=== PATIENT | female | born 1995 | race American Indian/Alaskan Native ===

== ENCOUNTER 2019-02-18 01:58 | Inpatient (IN) | payer MEDICAID, OTHER ==
[2019-02-18 02:03] VITALS: BMI 30.2
[2019-02-18] MEDS: Sodium Chloride 0.9% 1,000 ML IV SCH ×4 (02:20→21:13)
--- NOTE | 2019-02-18 02:23 | ED PDOC ---
Arrival/HPI - General Chief Complaint: Dizziness/Lightheaded Time Seen by Provider: 02/18/19 02:00 Historian: Patient - History of Present Illness Narrative History of Present Illness (Text): 02/18/19 02:14 23 year old female, whose past medical history includes diabetes, who presents to the ED complaining of dizziness tonight. Patient reports she has not taken her insulin "in months" due to insurance issues and developed dizziness this evening. Patient notes she took her blood sugar, which was elevated. Patient reports associated headache, lightheadedness, and vomiting. Patient denies any chest pain, shortness of breath, fever, chills, cough, diarrhea, abdominal pain or any other complaints. Time/Duration: 1-3 hours Symptom Onset: Gradual Symptom Course: Unchanged Activities at Onset: Light Context: Home Past Medical History - Provider Review Nursing Documentation Reviewed: Yes - Infectious Disease Hx of Infectious Diseases: None - Cardiac Hx Hypertension: Yes - Pulmonary Hx Respiratory Disorders: Yes Hx Asthma: Yes - Endocrine/Metabolic Hx Diabetes Mellitus Type 2: Yes - Psychiatric Hx Substance Use: No - Anesthesia Hx Anesthesia: No Family/Social History - Physician Review Nursing Documentation Reviewed: Yes Family/Social History: Unknown Family HX Smoking Status: Never Smoked Hx Alcohol Use: No Frequency of alcohol use: Socially Hx Substance Use: No Allergies/Home Meds Allergies/Adverse Reactions: Allergies peanut Allergy (Verified 02/18/19 02:04) ANAPHYLAXIS iv contrast Allergy (Uncoded 02/18/19 02:04) ANAPHYLAXIS seafood Allergy (Uncoded 02/18/19 02:04) ANAPHYLAXIS Home Medications: Home Meds Medication Instructions Recorded Confirmed No Known Home Med 02/18/19 02/18/19 Review of Systems - Physician Review All systems were reviewed & negative as marked: Yes - Review of Systems Constitutional: Normal. absent: Fevers Eyes: Normal ENT: Normal Respiratory: Normal. absent: SOB, Cough Cardiovascular: Normal. absent: Chest Pain Gastrointestinal: Vomiting. absent: Abdominal Pain Genitourinary Female: Normal. absent: Dysuria, Frequency, Hematuria, Urine Output Changes Musculoskeletal: Normal. absent: Back Pain, Neck Pain Skin: Normal. absent: Rash Neurological: Headache, Dizziness Endocrine: Other (+high blood sugar) Hemo/Lymphatic: Normal Psychiatric: Normal Physical Exam Vital Signs Reviewed: Yes Vital Signs Temp Pulse Resp BP Pulse Ox 02/18/19 02:12 97.7 F 103 H 18 113/78 98 Temperature: Afebrile Blood Pressure: Normal Pulse: Regular Respiratory Rate: Normal Appearance: Positive for: Well-Appearing, Non-Toxic, Comfortable Pain Distress: None Mental Status: Positive for: Alert and Oriented X 3 Finger Stick Blood Glucose: 489 - Systems Exam Head: Present: Atraumatic, Normocephalic Pupils: Present: PERRL Extroacular Muscles: Present: EOMI Conjunctiva: Present: Normal Mouth: Present: Moist Mucous Membranes Neck: Present: Normal Range of Motion Respiratory/Chest: Present: Clear to Auscultation, Good Air Exchange. No: Respiratory Distress, Accessory Muscle Use Cardiovascular: Present: Regular Rate and Rhythm, Normal S1, S2. No: Murmurs Abdomen: No: Tenderness, Distention, Peritoneal Signs Back: Present: Normal Inspection Upper Extremity: Present: Normal Inspection. No: Cyanosis, Edema Lower Extremity: Present: Normal Inspection. No: Edema Neurological: Present: GCS=15, CN II-XII Intact, Speech Normal Skin: Present: Warm, Dry, Normal Color. No: Rashes Psychiatric: Present: Alert, Oriented x 3, Normal Insight, Normal Concentration Medical Decision Making ED Course and Treatment: 02/18/19 02:27 Impression: 24 year old female who presents to the ED for dizziness. Plan: -- Labs, lipase, troponin -- IV Fluids -- Zofran -- Urinalysis, urine drug screen -- Reassess and disposition Progress Notes: 02/18/19 04:03 Case discussed with medical detailist electrical power station technician, who is aware and agrees with plan. 02/18/19 04:[address] Alberts, who is aware and agrees with plan. Accepts pt in to hospitalist service. Pt will go to [facility] observation for hyperglycemia. - Lab Interpretations I have reviewed the lab results: Yes - Medication Orders Current Medication Orders: Sodium Chloride (Sodium Chloride 0.9%) 1,000 mls @ 1,000 mls/hr IV .Q1H EDIS Ondansetron HCl (Zofran Inj) 4 mg IVP STAT STA Stop: 02/18/19 02:11 - Scribe Statement The provider has reviewed the documentation as recorded by the Milton Marquez training with Maryana Reinoso. All medical record entries made by the Scribe were at my direction and personally dictated by me. I have reviewed the chart and agree that the record accurately reflects my personal performance of the history, physical exam, [facility] hospital decision making, and the department course for this patient. I have also personally directed, reviewed, and agree with the discharge instructions and disposition. Disposition/Present on Arrival - Present on Arrival Any Indicators Present on Arrival: No History of DVT/PE: No History of Uncontrolled Diabetes: Yes Urinary Catheter: No History of Decub. Ulcer: No History Surgical Site Infection Following: None - Disposition Have Diagnosis and Disposition been Completed?: Yes Diagnosis: Hyperglycemia Disposition: HOSPITALIZED Disposition Time: 04:07 Condition: GOOD
[2019-02-18 03:24] LABS: ALB/GLOB RATIO 1.1 (1.1-1.8); ALBUMIN 4.4 g/dL (3.0-4.8); ALT/SGPT < 6 U/L (7-56); AST/SGOT 19 U/L (14-36); BLOOD UREA NITROGEN 8 mg/dL (7-21); CALCIUM 9.6 mg/dL (8.4-10.5); GFR NON-AFRICAN AMERICAN > 60
[2019-02-18 03:44] LABS: BARBITURATES, UR NEGATIVE (NEGATIVE); BENZODIAZEPINES, UR NEGATIVE (NEGATIVE); OPIATES, UR NEGATIVE (NEGATIVE); PHENCYCLIDINE, UR NEGATIVE (NEGATIVE)
[2019-02-18] MEDS ORDERED: Insulin Regular 1 UNITS/0.01 ML ML IVP STA (03:47)
[2019-02-18 04:09] LABS: BASO # 0.02 K/mm3 (0.0-2.0); BASO % 0.3 % (0.0-3.0); EOS # 0.1 (0.0-0.7); EOS % 1.8 % (1.5-5.0); HEMOGLOBIN 13.2 g/dL (12.0-16.0); LYMPH # 2.5 (1.2-3.4); MEAN CELL VOLUME 81.2 fl (80.0-105.0); MEAN CORPUSCULAR HEMOGLOBIN 26.7 pg (25.0-35.0); MEAN CORPUSCULAR HGB CONC 32.9 g/dl (31.0-37.0); MONO # 0.5 (0.1-0.6); MONO % 6.4 % (1.0-6.0); RBC 4.94 10^6/uL (3.5-6.1); RED CELL DISTRIBUTION WIDTH 12.5 % (11.5-14.5); WHITE BLOOD COUNT 7.7 10^3/uL (4.5-11.0)
[2019-02-18 04:13] LABS: URINE BILIRUBIN NEGATIVE (NEGATIVE); URINE BLOOD TRACE-INTACT (NEGATIVE); URINE GLUCOSE (UA) >=1000 mg/dL (NEGATIVE); URINE LEUKOCYTE ESTERASE TRACE Leu/uL (NEGATIVE); URINE PROTEIN NEGATIVE mg/dL (<30 mg/dL); URINE UROBILINOGEN 0.2 E.U./dL (<1 E.U./dL)
[2019-02-18 04:14] LABS: URINE APPEARANCE SL CLOUDY (CLEAR); URINE COLOR STRAW (YELLOW)
[2019-02-18] MEDS ORDERED: Dextrose 50% SYRINGE Inj (50 ml) IV PRN (04:17)
[2019-02-18] MEDS ORDERED: Potassium Chloride 20 mEq ER Tab PO STA (04:19)
[2019-02-18 04:25] LABS: URINE BACTERIA FEW /hpf; URINE RBC 0 - 2 /hpf (0-2)
[2019-02-18] MEDS ORDERED: Albuterol 0.083% Inhal Sol (2.5 mg/3 mL) UD IH PRN (05:06)
[2019-02-18] MEDS ORDERED: Sodium Chloride 0.9% 1,000 ML IV SCH ×2 (05:15→08:00)
--- NOTE | 2019-02-18 05:26 | CP.PCM.HP ---
<Kevin Frankelophe - Last Filed: 02/18/19 05:47> History of Present Illness - History of Present Illness History of Present Illness: Dr Frankel [facility] Hospitalist Service 24F PMHx of DM2 and Intermittent Asthma presents to the ED with a 2 week history of headaches, abdominal discomfort, nausea, dizziness, blurry vision, bilateral generalized leg pains and not taking insulin for 2 months. Pt attributes this to running out of her home insulin, as this has happened before, however the symptoms are worse today than ever before. the Pt is frequently non compliant with her medication at home and frequently runs out of her supply. Pt does not follow up with a PMD, pt [place] [facility] [place] [facility] [place] for her medical care. Pt says she has not seen a doctor in the office since she was a young child. ROS Pos: headaches, abdominal discomfort, nauseau, dizziness, blurry vision, bilateral generalized leg pains, med non compliance Neg: dysuria/urinary frequency, mental status changes, chest pain, SOB, fevers, chills, recent illness, sick contact, blood in urine/stool, syncope PMHx: DM2, Intermittent Asthma PSHx: denies FH: MOM - DM HTN Soc: smokes marijuana occasionally, denies ETOH, tobacco Allergies: peanuts, IV contrast, seafood Home Rx: Humalin 15u HS Novolog 7u SCHS Albuterol inh PRN Present on Admission - Present on Admission Any Indicators Present on Admission: Yes History of Uncontrolled Diabetes: Yes Review of Systems - Constitutional Constitutional: Headache. absent: Chills, Fever, Night Sweats, Weakness - EENT Eyes: Blurred Vision, Change in Vision. absent: Diplopia, Floaters Ears: Dizziness Nose/Mouth/Throat: absent: Dysphagia - Cardiovascular Cardiovascular: absent: Chest Pain, Dyspnea, Pain Radiating to Arm/Neck/Jaw, Orthopnea, Syncope - Respiratory Respiratory: absent: Cough, Dyspnea, Wheezing, Stridor - Gastrointestinal Gastrointestinal: Nausea. absent: Constipation, Cramping, Diarrhea, Dysphagia, Hematemesis, Hematochezia, Vomiting - Genitourinary Genitourinary: absent: Change in Urinary Stream, Dysuria - Musculoskeletal Musculoskeletal: Myalgias (bilateral legs) - Neurological Neurological: Dizziness. absent: Syncope, Weakness - Psychiatric Psychiatric: absent: Anxiety, Depression - Endocrine Endocrine: absent: Flushing, Palpitations Past Patient History - Infectious Disease Hx of Infectious Diseases: None - Past Social History Smoking Status: Never Smoked - CARDIAC Hx Hypertension: Yes - PULMONARY Hx Respiratory Disorders: Yes Hx Asthma: Yes - ENDOCRINE/METABOLIC Hx Diabetes Mellitus Type 2: Yes - PSYCHIATRIC Hx Substance Use: No - ANESTHESIA Hx Anesthesia: No Meds Allergies/Adverse Reactions: Allergies Allergy/AdvReac Type Severity Reaction Status Date / Time peanut Allergy ANAPHYLAXIS Verified 02/18/19 02:04 iv contrast Allergy ANAPHYLAXIS Uncoded 02/18/19 02:04 seafood Allergy ANAPHYLAXIS Uncoded 02/18/19 02:04 Physical Exam - Constitutional Appears: Non-toxic, No Acute Distress - Head Exam Head Exam: ATRAUMATIC, NORMOCEPHALIC - Eye Exam Eye Exam: EOMI, Normal appearance. absent: Scleral icterus Pupil Exam: NORMAL ACCOMODATION, PERRL - ENT Exam ENT Exam: Mucous Membranes Moist, Normal Exam - Neck Exam Neck exam: Positive for: Full Rom. Negative for: Lymphadenopathy - Respiratory Exam Respiratory Exam: Clear to Auscultation Bilateral. absent: Rales, Wheezes, Stridor - Cardiovascular Exam Cardiovascular Exam: RRR, +S1, +S2 - GI/Abdominal Exam GI & Abdominal Exam: Tenderness (R and L lower quadrants upon deep palp, reproduces nausea). absent: Distended, Guarding, Rigid - Extremities Exam Extremities exam: Positive for: normal capillary refill. Negative for: pedal edema - Back Exam Back exam: absent: CVA tenderness (L), CVA tenderness (R), rash noted - Neurological Exam Neurological exam: Alert, CN II-XII Intact, Normal Gait, Oriented x3 - Psychiatric Exam Psychiatric exam: Normal Affect, Normal Mood - Skin Skin Exam: Intact, Normal Color, Warm Results - Vital Signs Recent Vital Signs: Last Vital Signs Temp 97.4 F L 02/18/19 04:27 Pulse 106 H 02/18/19 04:27 Resp 20 02/18/19 04:27 BP 115/63 02/18/19 04:27 Pulse Ox 100 02/18/19 04:27 - Labs Result Diagrams: 02/18/19 02:25 02/18/19 02:25 Labs: Laboratory Results - last 24 hr 02/18/19 02/18/19 02/18/19 02:25 02:25 03:00 WBC 7.7 RBC 4.94 Hgb 13.2 Hct 40.1 MCV 81.2 MCH 26.7 MCHC 32.9 RDW 12.5 Plt Count 305 MPV 10.0 Neut % (Auto) 58.5 Lymph % (Auto) 33.0 [place] % (Auto) 6.4 H Eos % (Auto) 1.8 Baso % (Auto) 0.3 Lymph # (Auto) 2.5 [place] # (Auto) 0.5 Eos # (Auto) 0.1 Baso # (Auto) 0.02 Absolute Neuts (auto) 4.50 Sodium 135 Potassium 4.1 Chloride 96 L Carbon Dioxide 27 Anion Gap 16 BUN 8 Creatinine 0.5 L Est GFR ( Amer) > 60 Est GFR (Non-Af Amer) > 60 Random Glucose 585 H* Calcium 9.6 Total Bilirubin 0.3 AST 19 ALT < 6 L Alkaline Phosphatase 89 Total Protein 8.4 H Albumin 4.4 Globulin 4.0 Albumin/Globulin Ratio 1.1 Urine Color Straw Urine Appearance Sl cloudy Urine pH 6.0 Ur Specific [place] 1.010 Urine Protein Negative Urine Glucose (UA) >=1000 Urine Ketones Negative Urine Blood Trace-intact H Urine Nitrate Negative Urine Bilirubin Negative Urine Urobilinogen 0.2 Ur Leukocyte Esterase Trace H Urine RBC 0 - 2 Urine WBC 1 - 3 Ur Epithelial Cells 1 - 3 Urine Bacteria Few Urine Opiates Screen Urine Methadone Screen Ur Barbiturates Screen Ur Phencyclidine Scrn Ur Amphetamines Screen U Benzodiazepines Scrn U Oth Cocaine Metabols U Cannabinoids Screen 02/18/19 03:00 WBC RBC Hgb Hct MCV MCH MCHC RDW Plt Count MPV Neut % (Auto) Lymph % (Auto) [place] % (Auto) Eos % (Auto) Baso % (Auto) Lymph # (Auto) [place] # (Auto) Eos # (Auto) Baso # (Auto) Absolute Neuts (auto) Sodium Potassium Chloride Carbon Dioxide Anion Gap BUN Creatinine Est GFR ( Amer) Est GFR (Non-Af Amer) Random Glucose Calcium Total Bilirubin AST ALT Alkaline Phosphatase Total Protein Albumin Globulin Albumin/Globulin Ratio Urine Color Urine Appearance Urine pH Ur Specific [place] Urine Protein Urine Glucose (UA) Urine Ketones Urine Blood Urine Nitrate Urine Bilirubin Urine Urobilinogen Ur Leukocyte Esterase Urine RBC Urine WBC Ur Epithelial Cells Urine Bacteria Urine Opiates Screen Negative Urine Methadone Screen Negative Ur Barbiturates Screen Negative Ur Phencyclidine Scrn Negative Ur Amphetamines Screen Negative U Benzodiazepines Scrn Negative U Oth Cocaine Metabols Negative U Cannabinoids Screen Negative Assessment & Plan - Assessment and Plan (Free Text) Assessment: 24F pmhx DM2 and intermittent asthma admitted for hyperglycemia, nausea Plan: Hyperglycemia- DM2 uncontrolled - gluc >500 - Anion Gap >15 - UA: no ketones - given 10u Insulin IVP and 1L NS bolus in ED - ISS medium - KCL 40mg PO stat - NS @100 - Endo Dr Guerra consulted: f/u recs - Accuchecks - f/u 6am BMP Nausea/dizziness - Zofran 4 IVP q4 prn - NS @ 100 - Monitor Intermittent Asthma - Ventolin q6 prn for SOB - Monitor O2 sat PPx - Diabetic HHD - SCDs - Pecid 20 IVP daily d/w Dr Alberts <Lisa Alberts - Last Filed: 02/18/19 06:18> Results - Vital Signs Recent Vital Signs: Last Vital Signs Temp 97.4 F L 02/18/19 04:27 Pulse 106 H 02/18/19 04:27 Resp 20 02/18/19 04:27 BP 115/63 02/18/19 04:27 Pulse Ox 100 02/18/19 04:27 - Labs Result Diagrams: 02/18/19 02:25 02/18/19 02:25 Labs: Laboratory Results - last 24 hr 02/18/19 02/18/19 02/18/19 02:25 02:25 03:00 WBC 7.7 RBC 4.94 Hgb 13.2 Hct 40.1 MCV 81.2 MCH 26.7 MCHC 32.9 RDW 12.5 Plt Count 305 MPV 10.0 Neut % (Auto) 58.5 Lymph % (Auto) 33.0 [place] % (Auto) 6.4 H Eos % (Auto) 1.8 Baso % (Auto) 0.3 Lymph # (Auto) 2.5 [place] # (Auto) 0.5 Eos # (Auto) 0.1 Baso # (Auto) 0.02 Absolute Neuts (auto) 4.50 Sodium 135 Potassium 4.1 Chloride 96 L Carbon Dioxide 27 Anion Gap 16 BUN 8 Creatinine 0.5 L Est GFR ( Amer) > 60 Est GFR (Non-Af Amer) > 60 POC Glucose (mg/dL) Random Glucose 585 H* Calcium 9.6 Total Bilirubin 0.3 AST 19 ALT < 6 L Alkaline Phosphatase 89 Total Protein 8.4 H Albumin 4.4 Globulin 4.0 Albumin/Globulin Ratio 1.1 Urine Color Straw Urine Appearance Sl cloudy Urine pH 6.0 Ur Specific [place] 1.010 Urine Protein Negative Urine Glucose (UA) >=1000 Urine Ketones Negative Urine Blood Trace-intact H Urine Nitrate Negative Urine Bilirubin Negative Urine Urobilinogen 0.2 Ur Leukocyte Esterase Trace H Urine RBC 0 - 2 Urine WBC 1 - 3 Ur Epithelial Cells 1 - 3 Urine Bacteria Few Urine Opiates Screen Urine Methadone Screen Ur Barbiturates Screen Ur Phencyclidine Scrn Ur Amphetamines Screen U Benzodiazepines Scrn U Oth Cocaine Metabols U Cannabinoids Screen 02/18/19 02/18/19 03:00 05:42 WBC RBC Hgb Hct MCV MCH MCHC RDW Plt Count MPV Neut % (Auto) Lymph % (Auto) [place] % (Auto) Eos % (Auto) Baso % (Auto) Lymph # (Auto) [place] # (Auto) Eos # (Auto) Baso # (Auto) Absolute Neuts (auto) Sodium Potassium Chloride Carbon Dioxide Anion Gap BUN Creatinine Est GFR ( Amer) Est GFR (Non-Af Amer) POC Glucose (mg/dL) 384 H Random Glucose Calcium Total Bilirubin AST ALT Alkaline Phosphatase Total Protein Albumin Globulin Albumin/Globulin Ratio Urine Color Urine Appearance Urine pH Ur Specific [place] Urine Protein Urine Glucose (UA) Urine Ketones Urine Blood Urine Nitrate Urine Bilirubin Urine Urobilinogen Ur Leukocyte Esterase Urine RBC Urine WBC Ur Epithelial Cells Urine Bacteria Urine Opiates Screen Negative Urine Methadone Screen Negative Ur Barbiturates Screen Negative Ur Phencyclidine Scrn Negative Ur Amphetamines Screen Negative U Benzodiazepines Scrn Negative U Oth Cocaine Metabols Negative U Cannabinoids Screen Negative Attending/Attestation - Attestation I have personally seen and examined this patient.: Yes I have fully participated in the care of the patient.: Yes I have reviewed all pertinent clinical information: Yes Notes (Text): 02/18/19 06:06 Pt seen with the resident by the bedside. Addendum to physical findings: Pt is Obese. Additional diagnosis : Obesity.Pt needs to be seen by commercial or institutional cleaner for proper ad vice regarding diet. Case discussed in detail. Agree with rest of documentation,assessment and plan of treatment.
[2019-02-18] MEDS ORDERED: Sodium Chloride 0.9% 1,000 ML IV STA (06:17)
[2019-02-18 06:53] LABS: BLOOD UREA NITROGEN 5 mg/dL (7-21); CALCIUM 8.7 mg/dL (8.4-10.5); GFR NON-AFRICAN AMERICAN > 60
[2019-02-18] MEDS ORDERED: Influenza Vaccine 60 mcg/0.5 mL SYR (4YR UP) IM ONE (07:32)
[2019-02-18] MEDS: Insulin Reg-MEDIUM-Coverage SC SCH ×4 (08:52→21:48)
[2019-02-18 10:44] LABS: HDL CHOLESTEROL 28 mg/dL (29-60)
[2019-02-18 10:55] LABS: LDL CHOLESTEROL 80 mg/dL (0-129)
--- NOTE | 2019-02-18 12:48 | CON ---
DATE OF CONSULTATION: 02/18/2019 ENDOCRINOLOGY CONSULTATION ROOM: 566. HISTORY OF PRESENT ILLNESS: This is a 24-year-old female with a known history of type 2 insulin-requiring diabetes with recent drug omission of her insulin and oral hypoglycemic therapy for the last 3 months or more, presenting here with generalized body weakness and marked polyuria, nocturia, and polydipsia, with episodic bouts of dizziness and lightheadedness and bifrontal headaches. PAST MEDICAL HISTORY: History of type 2 insulin-requiring diabetes, previously on Humulin NPH given as 15 units at bedtime with NovoLog given as 7 units p.r.n. with meals; history of bronchial asthma and dyslipidemia. FAMILY HISTORY: Positive for diabetes and hypertension. SOCIAL HISTORY: The patient smokes marijuana and has a supportive family otherwise. REVIEW OF SYSTEMS: Admits to bifrontal headaches with dizziness and lightheadedness and generalized body weakness. Also admits to episodic shortness of breath, especially on exertion. Her oral intake has been variable with nausea and dyspepsia and marked polyuria, nocturia, and polydipsia. PHYSICAL EXAMINATION: GENERAL: This is an average built female, in no apparent distress. VITAL SIGNS: Blood pressure of 140/80, pulse of 70 beats per minute regular, temperature 98, respirations 20, height is 5 feet 7 inches. Weight is 193 pounds. HEENT: Head, normocephalic. Eyes anicteric with pink conjunctivae. Fundoscopy not possible at this time. Ears, nose and throat, otherwise normal. NECK: Supple. Thyroid gland is normal in size. No carotid bruits or cervical adenopathy. CARDIOPULMONARY: Some adynamic precordium. S1, S2 are rapid and regular. LUNGS: Clear to auscultation. ABDOMEN: Flat, soft with positive bowel sounds. EXTREMITIES: No peripheral edema. Pulses are +2 bilaterally. LABORATORY DATA: Her initial chemistries showed a BUN of 8, sodium 135, potassium 4.1, chloride 96, CO2 of 27, glucose 585, and creatinine 0.5. A1c is 15.7% confirming before her poor outpatient metabolic control of her diabetic condition related to drug omission. ASSESSMENT: This is a 24-year-old female with uncontrolled and decompensated type 2 insulin-requiring diabetes with marked hyperglycemic accelerations, and no evidence of ketosis and clearly a type 2 diabetic and clearly not a type 1 insulin-dependent diabetic as noted despite her young age. She is also slightly overweight with presumed underlying increased insulin resistance thereof. She also admits to poor adherence to medical office visits and lab testing and drug omission over the last 3 months or more. PLAN OF MANAGEMENT: We will initiate the dual oral hypoglycemic drug combination with glipizide given as 10 mg b.i.d. and metformin at 850 mg b.i.d. as ordered. We will continue the sliding-scale coverage as ordered. We will hold off the initiation of insulin therapy, if she would highly recommend follow up with our local [facility] clinic for ongoing diabetic and medical care. Terra Guerra MD
[2019-02-19] MEDS: Sodium Chloride 0.9% 1,000 ML IV SCH ×2 (03:40→10:41)
[2019-02-19 07:27] LABS: BASO # 0.02 K/mm3 (0.0-2.0); BASO % 0.3 % (0.0-3.0); EOS # 0.1 (0.0-0.7); EOS % 1.7 % (1.5-5.0); HEMOGLOBIN 11.4 g/dL (12.0-16.0); LYMPH # 2.5 (1.2-3.4); LYMPH % 34.7 % (22.0-35.0); MEAN CORPUSCULAR HEMOGLOBIN 25.7 pg (25.0-35.0); MEAN CORPUSCULAR HGB CONC 34.3 g/dl (31.0-37.0); MONO # 0.4 (0.1-0.6); RBC 4.43 10^6/uL (3.5-6.1); RED CELL DISTRIBUTION WIDTH 12.6 % (11.5-14.5); WHITE BLOOD COUNT 7.2 10^3/uL (4.5-11.0)
[2019-02-19] MEDS ORDERED: Insulin Human NPH/Reg 70/30 Vial(3 ml) SC SCH (07:30)
[2019-02-19 08:00] LABS: ALB/GLOB RATIO 0.9 (1.1-1.8); ALBUMIN 2.7 g/dL (3.0-4.8); ALT/SGPT 14 U/L (7-56); AST/SGOT 15 U/L (14-36); BLOOD UREA NITROGEN 8 mg/dL (7-21); GFR NON-AFRICAN AMERICAN > 60
[2019-02-19] MEDS: Insulin Reg-MEDIUM-Coverage SC SCH ×4 (08:36→23:05)
[2019-02-19 08:46] LABS: MEAN CELL VOLUME 82.2 fl (80.0-105.0)
--- NOTE | 2019-02-19 15:06 | CP.PCM.PN ---
<Naresh Cartwright - Last Filed: 02/19/19 15:02> Subjective - Date & Time of Evaluation Date of Evaluation: 02/19/19 Time of Evaluation: 08:00 - Subjective Subjective: Naresh Cartwright PGY1 Medicine Progress Note for Dr. Metz Patient seen at bedside this morning. Patient said she had some vomiting last night x2 episodes. She also had some diarrhea. Otherwise, she denies cp, sob, headache, fevers, chills, abdominal pain. She endorses pins and needle pain in her distal lower extremities. A full 12 point ROS was conducted and unremarkable except as stated above. Objective - Vital Signs/Intake and Output Vital Signs (last 24 hours): Temp Pulse Resp BP Pulse Ox 98 F 89 16 111/74 96 02/19/19 10:08 02/19/19 10:08 02/19/19 10:08 02/19/19 10:08 02/19/19 10:08 Intake and Output: 02/19/19 02/19/19 06:59 18:59 Intake Total 160 Output Total 0 Balance 160 - Medications Medications: Current Medications Albuterol Sulfate (Albuterol 0.083% Inhal Susan (2.5 Mg/3 Ml) Ud) 2.5 mg IH [id number] PRN PRN Reason: Shortness of Breath Dextrose (Dextrose 50% Inj) 0 ml IV STAT PRN; Protocol PRN Reason: Hypoglycemia Protocol Famotidine (Pepcid) 20 mg PO DAILY [facility] Last Admin: 02/19/19 10:40 Dose: 20 mg Gabapentin (Neurontin) 100 mg PO TID [facility]; Protocol Last Admin: 02/19/19 13:05 Dose: Not Given Glipizide (Glucotrol) 5 mg PO 0730,1630 [facility] Sodium Chloride (Sodium Chloride 0.9%) 1,000 mls @ 1,000 mls/hr IV .Q1H [facility] Last Admin: 02/18/19 03:40 Dose: 1,000 mls/hr Dextrose (Dextrose 5% In Water 1000 Ml) 1,000 mls @ 0 mls/hr IV .Q0M PRN; Protocol PRN Reason: Hypoglycemia Protocol Insulin Human Regular (Humulin R Med) 0 units SC ACHS [facility]; Protocol Last Admin: 02/19/19 13:05 Dose: 5 units Metformin HCl (Glucophage) 500 mg PO BID [facility] Ondansetron HCl (Zofran Inj) 4 mg IVP Q4 PRN PRN Reason: Nausea/Vomiting Last Admin: 02/19/19 11:47 Dose: 4 mg - Labs Labs: 02/19/19 07:00 02/19/19 07:00 - Constitutional Appears: Non-toxic, No Acute Distress - Head Exam Head Exam: ATRAUMATIC, NORMOCEPHALIC - Eye Exam Eye Exam: EOMI, Normal appearance. absent: Scleral icterus Pupil Exam: NORMAL ACCOMODATION, PERRL - ENT Exam ENT Exam: Mucous Membranes Moist, Normal Exam - Neck Exam Neck exam: Positive for: Full Rom. Negative for: Lymphadenopathy - Respiratory Exam Respiratory Exam: Clear to Auscultation Bilateral. absent: Rales, Wheezes, Stridor - Cardiovascular Exam Cardiovascular Exam: RRR, +S1, +S2 - GI/Abdominal Exam GI & Abdominal Exam: Mild Tenderness to palpation of lower abdomen. absent: Distended, Guarding, Rigid - Extremities Exam Extremities exam: Positive for: normal capillary refill. Mild tenderness to palpation of lower extremities bilaterally. Negative for: pedal edema - Back Exam Back exam: absent: CVA tenderness (L), CVA tenderness (R), rash noted - Neurological Exam Neurological exam: Alert, CN II-XII Intact, Normal Gait, Oriented x3 - Psychiatric Exam Psychiatric exam: Normal Affect, Normal Mood - Skin Skin Exam: Intact, Normal Color, Warm Assessment and Plan - Assessment and Plan (Free Text) Assessment: Patient is a 24 yo F with PMHx uncontrolled DM II and intermittent asthma who presented to the ED for mild abdominal discomfort, nausea, and hyperglycemia. Patient admitted for uncontrolled Diabetes. Plan: Hyperglycemia 2/2 Uncontrolled DM II - c/w metformin and glipizide - c/w Insulin NPH as per endo recs - Blood sugars improved since admission - c/w accuchecks - Endocrine (Dr. Guerra) is on consult. Recs appreciated. - A1c 15.7 - packing checker - counseled extensively on uncontrolled DM complications Vomiting and Diarrhea 2/2 Side Effects of DM Medications - Likely due to high doses of metformin and glipizide - lowered dosage of metformin and glipizide to metformin 500mg PO BID and glipizide 5mg BID - Patient still tolerating diet however; fluids discontinued as a result - c/w zofran - f/u UCx - continue to monitor for symptoms Bilateral lower extremity pain 2/2 Diabetic Neuropathy - Gabapentin 100mg PO TID - continue to monitor - UDS ordered Intermittent Asthma - c/w ventolin q6 prn - asymptomatic at this time DVT ppx: scd GI ppx: pepcid Diet: CCD Dispo: Given episodes of vomiting, diarrhea, and lower extremity, will watch patient overnight on med/surg. Case was discussed and reviewed with Attending Physician, Dr. Metz <Omer Metz - Last Filed: 02/19/19 17:27> Objective - Vital Signs/Intake and Output Vital Signs (last 24 hours): Temp Pulse Resp BP Pulse Ox 85 F L 98 H 20 128/88 98 02/19/19 15:08 02/19/19 15:08 02/19/19 15:08 02/19/19 15:08 02/19/19 15:08 Intake and Output: 02/19/19 02/19/19 06:59 18:59 Intake Total 160 Output Total 0 Balance 160 - Medications Medications: Current Medications Albuterol Sulfate (Albuterol 0.083% Inhal Susan (2.5 Mg/3 Ml) Ud) 2.5 mg IH [id number] PRN PRN Reason: Shortness of Breath Dextrose (Dextrose 50% Inj) 0 ml IV STAT PRN; Protocol PRN Reason: Hypoglycemia Protocol Famotidine (Pepcid) 20 mg PO DAILY [facility] Last Admin: 02/19/19 10:40 Dose: 20 mg Gabapentin (Neurontin) 100 mg PO TID [facility]; Protocol Last Admin: 02/19/19 13:05 Dose: Not Given Glipizide (Glucotrol) 5 mg PO 0730,1630 [facility] Sodium Chloride (Sodium Chloride 0.9%) 1,000 mls @ 1,000 mls/hr IV .Q1H [facility] Last Admin: 02/18/19 03:40 Dose: 1,000 mls/hr Dextrose (Dextrose 5% In Water 1000 Ml) 1,000 mls @ 0 mls/hr IV .Q0M PRN; Protocol PRN Reason: Hypoglycemia Protocol Insulin Human Regular (Humulin R Med) 0 units SC ACHS [facility]; Protocol Last Admin: 02/19/19 16:28 Dose: Not Given Metformin HCl (Glucophage) 500 mg PO BID [facility] Ondansetron HCl (Zofran Inj) 4 mg IVP Q4 PRN PRN Reason: Nausea/Vomiting Last Admin: 02/19/19 11:47 Dose: 4 mg - Labs Labs: 02/19/19 07:00 02/19/19 07:00 Attending/Attestation - Attestation I have personally seen and examined this patient.: Yes I have fully participated in the care of the patient.: Yes I have reviewed all pertinent clinical information, including history, physical exam and plan: Yes Notes (Text): 02/19/19 17:22 24 year old female with past medical history of diabetes, asthma and medication noncompliance who was admitted for uncontrolled diabetes with hyperglycemia. Fingersticks improved with insulin and IVF. A1c is 15.7. Endocrinology is following and started glipizide 10 mg bid and metformin 875 mg bid. However patient is now reporting stomach upset with nausea and vomiting. Metformin and glipizide doses have been decreased. Will monitor. Consider NPH insulin as per endocrinology however will wait to see if patient is tolerating meals. Patient was counselled on medication compliance. cafe team member referral was appreciated. Patient also complains of bilateral lower extremities neuropathy with difficulty with ambulation. Started on gabapentin and PT evaluation is requested. Omer Metz MD Hospitalist.
[2019-02-19] MEDS: Insulin Human NPH/Reg 70/30 Vial(3 ml) SC SCH (17:46)
--- NOTE | 2019-02-19 20:34 | PN ---
DATE: 02/19/2019 ENDOCRINOLOGY PROGRESS NOTE LOCATION: In room 566. SUBJECTIVE: This is a 24-year-old female with recent uncontrolled type 2 insulin-requiring diabetes, now being followed closely for metabolic management. Her glycemic levels are fluctuating but improved and the glucose levels overnight have ranged from 176 to 188 and 263 mg/dL. Her chemistry showed a BUN of 8, sodium 136, potassium 3.8, chloride 103, CO2 of 27, glucose 224, and creatinine 0.4. So at this time, we will continue the modified basal and bolus insulin regimen to allow for dose equilibration and keep her on Novolin 70/30 given as 24 units a.c. breakfast and 18 units a.c. dinner as ordered. We will continue the dual oral hypoglycemic therapy with metformin given as 850 mg b.i.d. and glipizide as 10 mg b.i.d. as ordered. We will obtain serial chemistries and supplement accordingly as needed. We will follow this. Terra Guerra MD
[2019-02-20 07:46] LABS: BASO # 0.01 K/mm3 (0.0-2.0); BASO % 0.1 % (0.0-3.0); EOS # 0.1 (0.0-0.7); EOS % 1.7 % (1.5-5.0); HEMOGLOBIN 11.4 g/dL (12.0-16.0); LYMPH % 35.4 % (22.0-35.0); MEAN CELL VOLUME 79.6 fl (80.0-105.0); MEAN CORPUSCULAR HEMOGLOBIN 25.6 pg (25.0-35.0); MEAN CORPUSCULAR HGB CONC 32.2 g/dl (31.0-37.0); MEAN PLATELET VOLUME 9.4 fl (7.0-11.0); MONO # 0.3 (0.1-0.6); MONO % 3.7 % (1.0-6.0); RBC 4.45 10^6/uL (3.5-6.1); RED CELL DISTRIBUTION WIDTH 12.6 % (11.5-14.5); WHITE BLOOD COUNT 8.5 10^3/uL (4.5-11.0)
[2019-02-20 07:57] LABS: ALBUMIN 3.1 g/dL (3.0-4.8); ALT/SGPT 13 U/L (7-56); AST/SGOT 14 U/L (14-36); BLOOD UREA NITROGEN 6 mg/dL (7-21); CALCIUM 8.6 mg/dL (8.4-10.5); GFR NON-AFRICAN AMERICAN > 60
[2019-02-20] MEDS: Insulin Reg-MEDIUM-Coverage SC SCH ×4 (08:59→22:09)
[2019-02-20] MEDS ORDERED: Potassium Chloride 20 mEq ER Tab PO STA (09:22)
[2019-02-20] MEDS: Insulin Human NPH/Reg 70/30 Vial(3 ml) SC SCH ×3 (09:37→20:07)
--- NOTE | 2019-02-20 18:32 | CP.PCM.PN ---
<Naresh Cartwright - Last Filed: 02/20/19 18:29> Subjective - Date & Time of Evaluation Date of Evaluation: 02/20/19 Time of Evaluation: 08:00 - Subjective Subjective: Naresh Cartwright, PGY1 Medicine Progress Note for Dr. Metz Patient seen at bedside. Vitals stable. No overnight events. She still has lower extremity pain although she said gabapentin helped a little bit. She still says she has trouble walking. Vomiting resolved. Tolerating diet. Denies cp, sob, n/v, abdominal pain, fever, chills. A full 12 point ROS was conducted and unremarkable except as stated above. Objective - Vital Signs/Intake and Output Vital Signs (last 24 hours): Temp Pulse Resp BP Pulse Ox 98.4 F 87 18 109/66 100 02/20/19 14:00 02/20/19 14:00 02/20/19 14:00 02/20/19 14:00 02/20/19 14:00 Intake and Output: 02/20/19 02/20/19 06:59 18:59 Intake Total 1320 600 Output Total 3 Balance 1317 600 - Medications Medications: Current Medications Albuterol Sulfate (Albuterol 0.083% Inhal Susan (2.5 Mg/3 Ml) Ud) 2.5 mg IH [id number] PRN PRN Reason: Shortness of Breath Dextrose (Dextrose 50% Inj) 0 ml IV STAT PRN; Protocol PRN Reason: Hypoglycemia Protocol Famotidine (Pepcid) 20 mg PO DAILY [facility] Last Admin: 02/20/19 09:00 Dose: 20 mg Gabapentin (Neurontin) 200 mg PO TID [facility]; Protocol Glipizide (Glucotrol) 5 mg PO 0730,1630 [facility] Last Admin: 02/20/19 09:00 Dose: 5 mg Dextrose (Dextrose 5% In Water 1000 Ml) 1,000 mls @ 0 mls/hr IV .Q0M PRN; Protocol PRN Reason: Hypoglycemia Protocol Insulin Human Regular (Humulin R Med) 0 units SC ACHS [facility]; Protocol Last Admin: 02/20/19 11:42 Dose: 1 units Metformin HCl (Glucophage) 500 mg PO BID [facility] Last Admin: 02/20/19 09:00 Dose: 500 mg Ondansetron HCl (Zofran Inj) 4 mg IVP Q4 PRN PRN Reason: Nausea/Vomiting Last Admin: 02/20/19 13:38 Dose: 4 mg - Labs Labs: 02/20/19 07:20 02/20/19 07:20 - Constitutional Appears: Non-toxic, No Acute Distress - Head Exam Head Exam: ATRAUMATIC, NORMOCEPHALIC - Eye Exam Eye Exam: EOMI, Normal appearance. absent: Scleral icterus Pupil Exam: NORMAL ACCOMODATION, PERRL - ENT Exam ENT Exam: Mucous Membranes Moist, Normal Exam - Neck Exam Neck exam: Positive for: Full Rom. Negative for: Lymphadenopathy - Respiratory Exam Respiratory Exam: Clear to Auscultation Bilateral. absent: Rales, Wheezes, Stridor - Cardiovascular Exam Cardiovascular Exam: RRR, +S1, +S2 - GI/Abdominal Exam GI & Abdominal Exam: absent: Distended, Guarding, Rigid - Extremities Exam Extremities exam: Positive for: normal capillary refill. Mild tenderness to palpation of lower extremities bilaterally. Negative for: pedal edema - Back Exam Back exam: absent: CVA tenderness (L), CVA tenderness (R), rash noted - Neurological Exam Neurological exam: Alert, CN II-XII Intact, Normal Gait, Oriented x3 - Psychiatric Exam Psychiatric exam: Normal Affect, Normal Mood - Skin Skin Exam: Intact, Normal Color, Warm Assessment and Plan - Assessment and Plan (Free Text) Assessment: Patient is a 24 yo F with PMHx uncontrolled DM II and intermittent asthma who presented to the ED for mild abdominal discomfort, nausea, and hyperglycemia. Patient admitted for Hyperglycemia 2/2 Uncontrolled Diabetes. Plan: Bilateral lower extremity pain - Consider 2/2 Diabetic Neuropathy vs Malingering - c/w Gabapentin 100mg PO TID - PT recommended [facility] - however patient has no insurance - obtain LE Doppler to r/o DVT - Patient told CMx/SW that she has been homeless and having difficulty lately - UDS negative Hyperglycemia 2/2 Uncontrolled DM II - improved - c/w metformin and glipizide - c/w Insulin NPH as per endo recs - c/w accuchecks - Endocrine (Dr. Guerra) is on consult. Recs appreciated. - A1c 15.7 - outreach educator - counseled extensively on uncontrolled DM complications Nausea and Vomiting 2/2 Side Effects of DM Medications - resolved - doses of metformin and glipizide adjusted - symptoms improved - Patient tolerating diet - c/w zofran - UA trace LE and UCx +Beta-hemolytic strep, however asymptomatic uncomplicated UTI - no treatment necessary Intermittent Asthma - c/w ventolin q6 prn DVT ppx: scd GI ppx: pepcid Diet: CCD Dispo: Given bilateral lower extremity pain, will obtain LE doppler to r/o DVT. PT recs [facility]. Will monitor at this time and determine placement. Case was discussed and reviewed with Attending Physician, Dr. Metz <Omer Metz - Last Filed: 02/20/19 18:54> Objective - Vital Signs/Intake and Output Vital Signs (last 24 hours): Temp Pulse Resp BP Pulse Ox 98.4 F 87 18 109/66 100 02/20/19 14:00 02/20/19 14:00 02/20/19 14:00 02/20/19 14:00 02/20/19 14:00 Intake and Output: 02/20/19 02/20/19 06:59 18:59 Intake Total 1320 600 Output Total 3 Balance 1317 600 - Medications Medications: Current Medications Albuterol Sulfate (Albuterol 0.083% Inhal Susan (2.5 Mg/3 Ml) Ud) 2.5 mg IH [id number] PRN PRN Reason: Shortness of Breath Dextrose (Dextrose 50% Inj) 0 ml IV STAT PRN; Protocol PRN Reason: Hypoglycemia Protocol Famotidine (Pepcid) 20 mg PO DAILY [facility] Last Admin: 02/20/19 09:00 Dose: 20 mg Gabapentin (Neurontin) 200 mg PO TID [facility]; Protocol Glipizide (Glucotrol) 5 mg PO 0730,1630 [facility] Last Admin: 02/20/19 09:00 Dose: 5 mg Dextrose (Dextrose 5% In Water 1000 Ml) 1,000 mls @ 0 mls/hr IV .Q0M PRN; Protocol PRN Reason: Hypoglycemia Protocol Insulin Human Regular (Humulin R Med) 0 units SC ACHS [facility]; Protocol Last Admin: 02/20/19 11:42 Dose: 1 units Metformin HCl (Glucophage) 500 mg PO BID [facility] Last Admin: 02/20/19 09:00 Dose: 500 mg Ondansetron HCl (Zofran Inj) 4 mg IVP Q4 PRN PRN Reason: Nausea/Vomiting Last Admin: 02/20/19 13:38 Dose: 4 mg - Labs Labs: 02/20/19 07:20 02/20/19 07:20 Attending/Attestation - Attestation I have personally seen and examined this patient.: Yes I have fully participated in the care of the patient.: Yes I have reviewed all pertinent clinical information, including history, physical exam and plan: Yes Notes (Text): 02/20/19 18:50 24 year old female with past medical history of diabetes, asthma and medication noncompliance who was admitted for uncontrolled diabetes with hyperglycemia. Fingersticks improved with insulin and IVF. A1c is 15.7. Endocrinology is following and started glipizide, metformin, and NPH insulin. Patient was counselled on medication compliance. Patient's GI symptoms of nausea and vomiting also have improved after her metformin dose was decreased. Patient was started on neurontin with some improvement of neuropathy. However patient still complains of difficulty with ambulation and unsteady gait. PT evaluation was appreciated who is recommending [facility]. However patient does not have insurance. Continue with PT as tolerating. D/c planning once gait is steady and cleared by physical therapy. Omer Metz MD Hospitalist.
--- NOTE | 2019-02-20 20:36 | US ---
PROCEDURE: Left lower extremity venous US HISTORY: Leg pain and swelling. Evaluate for DVT. PHYSICIAN(S): Gatito Garner MD. TECHNIQUE: Duplex sonography and color-flow Doppler with graded compression were used to evaluate the deep venous system of the left lower extremity. FINDINGS: The visualized deep venous system of the left lower extremity is sonographically normal and compressible. Normal wave forms and augmentation are seen. There is no sonographic evidence for deep venous thrombosis in the visualized segments of the left lower extremity. IMPRESSION: 1. No sonographic evidence for deep venous thrombosis in the visualized segments of the left lower extremity.
--- NOTE | 2019-02-21 04:30 | PN ---
DATE: 02/20/2019 ENDOCRINOLOGY FOLLOWUP NOTE LOCATION: Room 566. This is a 24-year-old female with recent uncontrolled type 2 insulin-requiring diabetes, now being followed closely for metabolic management. Her glycemic levels are fluctuating but improved, and today's glucose levels have ranged from 134 to 169 and 288 mg/dL. Her chemistry showed a BUN of 6, sodium 137, potassium 3.5, chloride 104, CO2 of 27, glucose 149, and creatinine is 0.3. So at this time, we will continue the same premixed insulin regimen with Novolin 70/30 given as 28 units before meals breakfast and 18 units before meals dinner as ordered. We will also continue the glipizide at higher dosing of 10 mg b.i.d. and will discontinue the metformin if GI side effects persist accordingly. The patient at this time is clearly insulin requiring and is really only way to optimize her metabolic control. We will follow. Terra Guerra MD
[2019-02-21] MEDS ORDERED: Potassium Chloride 20 mEq ER Tab PO ONE (07:07)
[2019-02-21 08:05] LABS: ALBUMIN 3.1 g/dL (3.0-4.8); ALT/SGPT 8 U/L (7-56); AST/SGOT 16 U/L (14-36); BLOOD UREA NITROGEN 6 mg/dL (7-21); CALCIUM 8.8 mg/dL (8.4-10.5); GFR NON-AFRICAN AMERICAN > 60
[2019-02-21 08:08] LABS: BASO # 0.02 K/mm3 (0.0-2.0); BASO % 0.3 % (0.0-3.0); EOS # 0.2 (0.0-0.7); HEMOGLOBIN 12.2 g/dL (12.0-16.0); LYMPH # 2.7 (1.2-3.4); LYMPH % 34.3 % (22.0-35.0); MEAN CELL VOLUME 80.3 fl (80.0-105.0); MEAN CORPUSCULAR HEMOGLOBIN 26.1 pg (25.0-35.0); MEAN CORPUSCULAR HGB CONC 32.4 g/dl (31.0-37.0); MEAN PLATELET VOLUME 9.8 fl (7.0-11.0); MONO # 0.5 (0.1-0.6); MONO % 6.1 % (1.0-6.0); RBC 4.68 10^6/uL (3.5-6.1); RED CELL DISTRIBUTION WIDTH 12.5 % (11.5-14.5); WHITE BLOOD COUNT 7.9 10^3/uL (4.5-11.0)
[2019-02-21] MEDS: Insulin Human NPH/Reg 70/30 Vial(3 ml) SC SCH ×2 (08:09→18:03)
[2019-02-21] MEDS: Insulin Reg-MEDIUM-Coverage SC SCH ×4 (14:28→22:00)
--- NOTE | 2019-02-21 17:03 | CP.PCM.PN ---
<Naresh Cartwright - Last Filed: 02/21/19 16:56> Subjective - Date & Time of Evaluation Date of Evaluation: 02/21/19 Time of Evaluation: 08:00 - Subjective Subjective: Naresh Cartwright PGY1 Medicine Progress Note for Dr. Metz Patient seen at bedside. Vitals stable. No overnight events. Lower extremity pain has improved. Vomiting resolved. Tolerating diet. Denies cp, sob, n/v, abdominal pain, fever, chills. A full 12 point ROS was conducted and unremarkable except as stated above. Objective - Vital Signs/Intake and Output Vital Signs (last 24 hours): Temp Pulse Resp BP Pulse Ox 98.4 F 88 18 97/63 L 94 L 02/21/19 14:00 02/21/19 14:00 02/21/19 14:00 02/21/19 14:00 02/21/19 14:00 Intake and Output: 02/21/19 02/21/19 06:59 18:59 Intake Total 660 480 Balance 660 480 - Medications Medications: Current Medications Albuterol Sulfate (Albuterol 0.083% Inhal Susan (2.5 Mg/3 Ml) Ud) 2.5 mg IH [id number] PRN PRN Reason: Shortness of Breath Dextrose (Dextrose 50% Inj) 0 ml IV STAT PRN; Protocol PRN Reason: Hypoglycemia Protocol Famotidine (Pepcid) 20 mg PO DAILY [facility] Last Admin: 02/21/19 09:33 Dose: 20 mg Gabapentin (Neurontin) 200 mg PO TID [facility]; Protocol Last Admin: 02/21/19 14:58 Dose: 200 mg Glipizide (Glucotrol) 5 mg PO 0730,1630 [facility] Last Admin: 02/21/19 08:08 Dose: 5 mg Dextrose (Dextrose 5% In Water 1000 Ml) 1,000 mls @ 0 mls/hr IV .Q0M PRN; P rotocol PRN Reason: Hypoglycemia Protocol Insulin Human Regular (Humulin R Med) 0 units SC ACHS [facility]; Protocol Last Admin: 02/21/19 14:28 Dose: 3 units Metformin HCl (Glucophage) 500 mg PO BID [facility] Last Admin: 02/21/19 09:33 Dose: 500 mg Ondansetron HCl (Zofran Inj) 4 mg IVP Q4 PRN PRN Reason: Nausea/Vomiting Last Admin: 02/20/19 13:38 Dose: 4 mg - Labs Labs: 02/21/19 07:20 02/21/19 07:20 - Constitutional Appears: Non-toxic, No Acute Distress - Head Exam Head Exam: ATRAUMATIC, NORMOCEPHALIC - Eye Exam Eye Exam: EOMI, Normal appearance. absent: Scleral icterus Pupil Exam: NORMAL ACCOMODATION, PERRL - ENT Exam ENT Exam: Mucous Membranes Moist, Normal Exam - Neck Exam Neck exam: Positive for: Full Rom. Negative for: Lymphadenopathy - Respiratory Exam Respiratory Exam: Clear to Auscultation Bilateral. absent: Rales, Wheezes, Stridor - Cardiovascular Exam Cardiovascular Exam: RRR, +S1, +S2 - GI/Abdominal Exam GI & Abdominal Exam: absent: Distended, Guarding, Rigid - Extremities Exam Extremities exam: Positive for: normal capillary refill. Mild tenderness to palpation of lower extremities bilaterally. Negative for: pedal edema - Back Exam Back exam: absent: CVA tenderness (L), CVA tenderness (R), rash noted - Neurological Exam Neurological exam: Alert, CN II-XII Intact, Normal Gait, Oriented x3 - Psychiatric Exam Psychiatric exam: Normal Affect, Normal Mood - Skin Skin Exam: Intact, Normal Color, Warm Assessment and Plan - Assessment and Plan (Free Text) Assessment: Patient is a 24 yo F with PMHx uncontrolled DM II and intermittent asthma who presented to the ED for mild abdominal discomfort, nausea, and hyperglycemia. Patient admitted for Hyperglycemia 2/2 Uncontrolled Diabetes. Plan: Bilateral lower extremity pain 2/2 DM Neuropathy vs Malingering - PT recommended [facility] - denied because no insurance. Re-evaluation is for Home with services, however, patient is homeless. Pending further recs from /corporate development manager. - c/w Gabapentin 100mg PO TID - LE Doppler negative for DVT - UDS negative Homeless - Given resources on homeless shelters ([facility]) and temporary placement; however, it is closed over the weekend - Social work is on board - Patient claims she has no family support upon discharge Hyperglycemia 2/2 Uncontrolled DM II - improved - c/w metformin and glipizide - c/w Insulin NPH as in-patient as per endo recs - Patient refusing insulin on discharge. Patient educated repeatedly but she still refuses. - c/w accuchecks - Endocrine (Dr. Guerra) is on consult. Recs appreciated. - A1c 15.7 - dry cleaner hand - counseled extensively on uncontrolled DM complications Nausea and Vomiting 2/2 Side Effects of DM Medications - resolved - doses of metformin and glipizide adjusted - symptoms improved - Patient tolerating diet - c/w zofran - UA trace LE and UCx +Beta-hemolytic strep, however asymptomatic uncomplicated UTI - no treatment necessary Intermittent Asthma - c/w ventolin q6 prn DVT ppx: scd GI ppx: pepcid Diet: CCD Dispo: Given bilateral lower extremity pain. PT now recommends home with services. Pending placement for possible skilled nursing as patient says she has no where else to go. Will follow up recommendation from Social Work and Head Teacher on Saturday, when available. Case was discussed and reviewed with Attending Physician, Dr. Metz <Omer Metz - Last Filed: 02/21/19 17:19> Objective - Vital Signs/Intake and Output Vital Signs (last 24 hours): Temp Pulse Resp BP Pulse Ox 98.4 F 88 18 97/63 L 94 L 02/21/19 14:00 02/21/19 14:00 02/21/19 14:00 02/21/19 14:00 02/21/19 14:00 Intake and Output: 02/21/19 02/21/19 06:59 18:59 Intake Total 660 480 Balance 660 480 - Medications Medications: Current Medications Albuterol Sulfate (Albuterol 0.083% Inhal Susan (2.5 Mg/3 Ml) Ud) 2.5 mg IH [id number] PRN PRN Reason: Shortness of Breath Dextrose (Dextrose 50% Inj) 0 ml IV STAT PRN; Protocol PRN Reason: Hypoglycemia Protocol Famotidine (Pepcid) 20 mg PO DAILY [facility] Last Admin: 02/21/19 09:33 Dose: 20 mg Gabapentin (Neurontin) 200 mg PO TID [facility]; Protocol Last Admin: 02/21/19 14:58 Dose: 200 mg Glipizide (Glucotrol) 5 mg PO 0730,1630 [facility] Last Admin: 02/21/19 08:08 Dose: 5 mg Dextrose (Dextrose 5% In Water 1000 Ml) 1,000 mls @ 0 mls/hr IV .Q0M PRN; Protocol PRN Reason: Hypoglycemia Protocol Insulin Human Regular (Humulin R Med) 0 units SC ACHS [facility]; Protocol Last Admin: 02/21/19 14:28 Dose: 3 units Metformin HCl (Glucophage) 500 mg PO BID [facility] Last Admin: 02/21/19 09:33 Dose: 500 mg Ondansetron HCl (Zofran Inj) 4 mg IVP Q4 PRN PRN Reason: Nausea/Vomiting Last Admin: 02/20/19 13:38 Dose: 4 mg - Labs Labs: 02/21/19 07:20 02/21/19 07:20 Attending/Attestation - Attestation I have personally seen and examined this patient.: Yes I have fully participated in the care of the patient.: Yes I have reviewed all pertinent clinical information, including history, physical exam and plan: Yes Notes (Text): 02/21/19 17:15 24 year old female with past medical history of diabetes, asthma and medication noncompliance who was admitted for uncontrolled diabetes with hyperglycemia. Fingersticks improved with insulin and IVF. A1c is 15.7. Endocrinology is following and started glipizide, metformin, and NPH insulin although patient will refuse to take insulin upon discharge. Patient was counselled on medication compliance. Patient's GI symptoms of nausea and vomiting also have resolved after her metformin dose was decreased. Patient was started on neurontin with some improvement of neuropathy. She still complains of unsteady gait. PT is recommending home with services. However patient is currently homeless. Will follow up with Sw on Saturday. Omer Metz MD Hospitalist.
[2019-02-22 07:39] LABS: BASO # 0.01 K/mm3 (0.0-2.0); BASO % 0.1 % (0.0-3.0); EOS # 0.1 (0.0-0.7); EOS % 1.7 % (1.5-5.0); HEMOGLOBIN 11.5 g/dL (12.0-16.0); LYMPH # 2.6 (1.2-3.4); LYMPH % 32.1 % (22.0-35.0); MEAN CELL VOLUME 81.8 fl (80.0-105.0); MEAN CORPUSCULAR HEMOGLOBIN 25.9 pg (25.0-35.0); MEAN CORPUSCULAR HGB CONC 31.7 g/dl (31.0-37.0); MEAN PLATELET VOLUME 9.3 fl (7.0-11.0); MONO # 0.5 (0.1-0.6); MONO % 6.7 % (1.0-6.0); RBC 4.44 10^6/uL (3.5-6.1); RED CELL DISTRIBUTION WIDTH 12.7 % (11.5-14.5)
[2019-02-22] MEDS: Insulin Reg-MEDIUM-Coverage SC SCH ×4 (07:52→22:02)
[2019-02-22] MEDS: Insulin Human NPH/Reg 70/30 Vial(3 ml) SC SCH ×2 (07:52→17:20)
[2019-02-22 07:59] LABS: ALB/GLOB RATIO 1.1 (1.1-1.8); ALBUMIN 3.2 g/dL (3.0-4.8); ALT/SGPT 10 U/L (7-56); AST/SGOT 14 U/L (14-36); BLOOD UREA NITROGEN 9 mg/dL (7-21); CALCIUM 8.9 mg/dL (8.4-10.5); GFR NON-AFRICAN AMERICAN > 60
--- NOTE | 2019-02-22 14:02 | CP.PCM.PN ---
<Naresh Cartwright - Last Filed: 02/22/19 13:57> Subjective - Date & Time of Evaluation Date of Evaluation: 02/22/19 Time of Evaluation: 08:00 - Subjective Subjective: Naresh Cartwright PGY1 Medicine Progress Note for Dr. Metz Patient seen at bedside. Vitals stable. No overnight events. Patient was seen ambulating to bathroom by nursing staff. Lower extremity pain has improved. Vomiting resolved. Tolerating diet. Denies cp, sob, n/v, abdominal pain, fever, chills. A full 12 point ROS was conducted and unremarkable except as stated above. Objective - Vital Signs/Intake and Output Vital Signs (last 24 hours): Temp Pulse Resp BP Pulse Ox 98.2 F 95 H 18 98/64 L 97 02/22/19 06:00 02/22/19 06:00 02/22/19 06:00 02/22/19 06:00 02/22/19 06:00 - Medications Medications: Current Medications Albuterol Sulfate (Albuterol 0.083% Inhal Susan (2.5 Mg/3 Ml) Ud) 2.5 mg IH [id number] PRN PRN Reason: Shortness of Breath Dextrose (Dextrose 50% Inj) 0 ml IV STAT PRN; Protocol PRN Reason: Hypoglycemia Protocol Famotidine (Pepcid) 20 mg PO DAILY [facility] Last Admin: 02/22/19 09:44 Dose: 20 mg Gabapentin (Neurontin) 200 mg PO TID [facility]; Protocol Last Admin: 02/22/19 13:03 Dose: 200 mg Glipizide (Glucotrol) 5 mg PO 0730,1630 [facility] Last Admin: 02/22/19 07:52 Dose: 5 mg Dextrose (Dextrose 5% In Water 1000 Ml) 1,000 mls @ 0 mls/hr IV .Q0M PRN; Protocol PRN Reason: Hypoglycemia Protocol Insulin Human Regular (Humulin R Med) 0 units SC ACHS [facility]; Protocol Last Admin: 02/22/19 12:11 Dose: Not Given Metformin HCl (Glucophage) 500 mg PO BID [facility] Last Admin: 02/22/19 09:44 Dose: 500 mg Ondansetron HCl (Zofran Inj) 4 mg IVP Q4 PRN PRN Reason: Nausea/Vomiting Last Admin: 02/20/19 13:38 Dose: 4 mg - Labs Labs: 02/22/19 07:15 02/22/19 07:15 - Constitutional Appears: Non-toxic, No Acute Distress - Head Exam Head Exam: ATRAUMATIC, NORMOCEPHALIC - Eye Exam Eye Exam: EOMI, Normal appearance. absent: Scleral icterus Pupil Exam: NORMAL ACCOMODATION, PERRL - ENT Exam ENT Exam: Mucous Membranes Moist, Normal Exam - Neck Exam Neck exam: Positive for: Full Rom. Negative for: Lymphadenopathy - Respiratory Exam Respiratory Exam: Clear to Auscultation Bilateral. absent: Rales, Wheezes, Stridor - Cardiovascular Exam Cardiovascular Exam: RRR, +S1, +S2 - GI/Abdominal Exam GI & Abdominal Exam: absent: Distended, Guarding, Rigid - Extremities Exam Extremities exam: Positive for: normal capillary refill. Negative for: pedal ed rayna, tenderness - Back Exam Back exam: absent: CVA tenderness (L), CVA tenderness (R), rash noted - Neurological Exam Neurological exam: Alert, CN II-XII Intact, Normal Gait, Oriented x3 - Psychiatric Exam Psychiatric exam: Normal Affect, Normal Mood - Skin Skin Exam: Intact, Normal Color, Warm Assessment and Plan - Assessment and Plan (Free Text) Assessment: Patient is a 24 yo homeless F with PMHx uncontrolled DM II and intermittent asthma who presented to the ED for mild abdominal discomfort, nausea, and hyperglycemia. Patient admitted for Hyperglycemia 2/2 Uncontrolled Diabetes. During hospital course she had bilateral lower extremity pain 2/2 DM neuropathy. Plan: Bilateral lower extremity pain 2/2 DM Neuropathy vs Malingering - PT recommended [facility] - denied because no insurance. [facility], however, patient is homeless. Pending further recs from JOSE FRANCISCO/chartered wealth manager. - c/w Gabapentin 100mg PO TID - symptoms improved Homeless - Given resources on homeless shelters ([facility]) and temporary placement; however, it is closed over the weekend. Follow up with JOSE FRANCISCO/Berta tomorrow. - Social work is on board - Patient claims she has no family support upon discharge Hyperglycemia 2/2 Uncontrolled DM II - improved - c/w metformin, glipizide, and Insulin NPH per endo recs - c/w accuchecks - Endocrine (Dr. Guerra) is on consult. Recs appreciated. - A1c 15.7 - environmental educator - counseled extensively on uncontrolled DM complications Nausea and Vomiting 2/2 Side Effects of DM Medications - resolved - doses of metformin and glipizide adjusted - symptoms improved - tolerating diet well - c/w zofran prn - UA trace LE and UCx +Beta-hemolytic strep, however asymptomatic uncomplicated UTI - no treatment necessary Intermittent Asthma - c/w ventolin q6 prn DVT ppx: scd GI ppx: pepcid Diet: CCD Dispo: Pending placement for possible alf as patient says she has no where else to go. Will follow up recommendation from Social Work and Flight Engineer on Saturday, when available. Case was discussed and reviewed with Attending Physician, Dr. Metz <Omer Metz - Last Filed: 02/22/19 14:19> Objective - Vital Signs/Intake and Output Vital Signs (last 24 hours): Temp Pulse Resp BP Pulse Ox 98.2 F 95 H 18 98/64 L 97 02/22/19 06:00 02/22/19 06:00 02/22/19 06:00 02/22/19 06:00 02/22/19 06:00 - Medications Medications: Current Medications Albuterol Sulfate (Albuterol 0.083% Inhal Susan (2.5 Mg/3 Ml) Ud) 2.5 mg IH Q 6HRESP PRN PRN Reason: Shortness of Breath Dextrose (Dextrose 50% Inj) 0 ml IV STAT PRN; Protocol PRN Reason: Hypoglycemia Protocol Famotidine (Pepcid) 20 mg PO DAILY [facility] Last Admin: 02/22/19 09:44 Dose: 20 mg Gabapentin (Neurontin) 200 mg PO TID [facility]; Protocol Last Admin: 02/22/19 13:03 Dose: 200 mg Glipizide (Glucotrol) 5 mg PO 0730,1630 [facility] Last Admin: 02/22/19 07:52 Dose: 5 mg Dextrose (Dextrose 5% In Water 1000 Ml) 1,000 mls @ 0 mls/hr IV .Q0M PRN; Protocol PRN Reason: Hypoglycemia Protocol Insulin Human Regular (Humulin R Med) 0 units SC ACHS [facility]; Protocol Last Admin: 02/22/19 12:11 Dose: Not Given Metformin HCl (Glucophage) 500 mg PO BID [facility] Last Admin: 02/22/19 09:44 Dose: 500 mg Ondansetron HCl (Zofran Inj) 4 mg IVP Q4 PRN PRN Reason: Nausea/Vomiting Last Admin: 02/20/19 13:38 Dose: 4 mg - Labs Labs: 02/22/19 07:15 02/22/19 07:15 Attending/Attestation - Attestation I have personally seen and examined this patient.: Yes I have fully participated in the care of the patient.: Yes I have reviewed all pertinent clinical information, including history, physical exam and plan: Yes Notes (Text): 02/22/19 14:18 24 year old female with past medical history of diabetes, asthma and medication noncompliance who was admitted for uncontrolled diabetes with hyperglycemia. Fingersticks improved with insulin and IVF. A1c is 15.7. Endocrinology is following and started glipizide, metformin, and NPH insulin although patient is refusing to take insulin upon discharge. Patient was counselled on medication compliance. Patient's GI symptoms of nausea and vomiting also have resolved after her metformin dose was decreased. She is tolerating diet. Patient was started on neurontin with improvement of neuropathy. PT is following for unsteady gait which is also improving; recommended home with services. However patient is currently homeless. Will follow up with [facility] on Saturday. Omer Metz MD Hospitalist.
[2019-02-23] MEDS: Insulin Reg-MEDIUM-Coverage SC SCH ×2 (08:04→11:31)
[2019-02-23] MEDS: Insulin Human NPH/Reg 70/30 Vial(3 ml) SC SCH (09:03)
[2019-02-23] MEDS ORDERED: Insulin Human NPH/Reg 70/30 Vial(3 ml) SC SCH ×2 (09:31)
[2019-02-23 10:28] LABS: BASO # 0.01 K/mm3 (0.0-2.0); BASO % 0.1 % (0.0-3.0); EOS # 0.2 (0.0-0.7); EOS % 2.4 % (1.5-5.0); HEMOGLOBIN 12.2 g/dL (12.0-16.0); LYMPH # 2.3 (1.2-3.4); LYMPH % 32.8 % (22.0-35.0); MEAN CELL VOLUME 81.5 fl (80.0-105.0); MEAN CORPUSCULAR HEMOGLOBIN 26.2 pg (25.0-35.0); MEAN CORPUSCULAR HGB CONC 32.1 g/dl (31.0-37.0); MEAN PLATELET VOLUME 9.4 fl (7.0-11.0); MONO # 0.4 (0.1-0.6); MONO % 6.2 % (1.0-6.0); RBC 4.66 10^6/uL (3.5-6.1); RED CELL DISTRIBUTION WIDTH 12.5 % (11.5-14.5)
[2019-02-23 11:36] LABS: ALB/GLOB RATIO 1.1 (1.1-1.8); ALBUMIN 3.5 g/dL (3.0-4.8); ALT/SGPT 18 U/L (7-56); AST/SGOT 20 U/L (14-36); BLOOD UREA NITROGEN 7 mg/dL (7-21); GFR NON-AFRICAN AMERICAN > 60
--- NOTE | 2019-02-23 12:09 | CP.PCM.DIS ---
<Yo Benjamin R - Last Filed: 02/23/19 12:11> Provider - Provider Date of Admission: 02/18/19 04:12 Attending physician: Shivani Najera MD Primary care physician: PMD: none Consults: 02/18/19 05:01 Endocrinology Consult Routine Comment: Consulting Provider: Terra Guerra Consulting Physician: Terra Guerra Reason for Consult: uncontrolled DM2, non compliant 02/18/19 09:22 Diabetic Education Referral Routine Comment: Physician Instructions: Reason For Exam: need supplies 02/22/19 22:22 Discharge Planning [Case Management Referral] Routine Comment: Physician Instructions: Reason For Exam: PT recommends home with services but pt homeless Reason for Referral: [facility] Eval 02/23/19 08:26 Discharge Planning [Case Management Referral] Routine Comment: Physician Instructions: Reason For Exam: pt cannot afford $30 for insulin Reason for Referral: Discharge Planning Time Spent in preparation of Discharge (in minutes): 35 Diagnosis - Discharge Diagnosis (1) Hyperglycemia Status: Chronic Priority: High Hospital Course - Lab Results Lab Results: Micro Results 02/18/19 03:00 Urine,Clean Catch Urine Culture - Final Beta Hemolytic Strep Group B Most Recent Lab Values WBC 7.0 10^3/uL (4.5-11.0) 02/23/19 09:25 RBC 4.66 10^6/uL (3.5-6.1) 02/23/19 09:25 Hgb 12.2 g/dL (12.0-16.0) 02/23/19 09:25 Hct 38.0 % (36.0-48.0) 02/23/19 09:25 MCV 81.5 fl (80.0-105.0) 02/23/19 09:25 MCH 26.2 pg (25.0-35.0) 02/23/19 09:25 MCHC 32.1 g/dl (31.0-37.0) 02/23/19 09:25 RDW 12.5 % (11.5-14.5) 02/23/19 09:25 Plt Count 292 10^3/uL (120.0-450.0) 02/23/19 09:25 MPV 9.4 fl (7.0-11.0) 02/23/19 09:25 Neut % (Auto) 58.5 % (50.0-68.0) 02/23/19 09:25 Lymph % (Auto) 32.8 % (22.0-35.0) 02/23/19 09:25 [place] % (Auto) 6.2 % (1.0-6.0) H 02/23/19 09:25 Eos % (Auto) 2.4 % (1.5-5.0) 02/23/19 09:25 Baso % (Auto) 0.1 % (0.0-3.0) 02/23/19 09:25 Lymph # (Auto) 2.3 (1.2-3.4) 02/23/19 09:25 [place] # (Auto) 0.4 (0.1-0.6) 02/23/19 09:25 Eos # (Auto) 0.2 (0.0-0.7) 02/23/19 09:25 Baso # (Auto) 0.01 K/mm3 (0.0-2.0) 02/23/19 09:25 Absolute Neuts (auto) 4.08 (1.4-6.5) 02/23/19 09:25 Sodium 137 mmol/L (132-148) 02/23/19 09:25 Potassium 3.7 mmol/L (3.6-5.0) 02/22/19 07:15 Chloride 103 mmol/L (98-107) 02/23/19 09:25 Carbon Dioxide 26 mmol/L (21-33) 02/23/19 09:25 Anion Gap 11 (10-20) 02/23/19 09:25 BUN 7 mg/dL (7-21) 02/23/19 09:25 Creatinine 0.4 mg/dl (0.7-1.2) L 02/23/19 09:25 Est GFR ( Amer) > 60 02/23/19 09:25 Est GFR (Non-Af Amer) > 60 02/23/19 09:25 POC Glucose (mg/dL) 149 mg/dL (65-110) H 02/23/19 11:15 Random Glucose 110 mg/dL (70-110) 02/23/19 09:25 Hemoglobin A1c 15.7 % (4.2-6.5) H 02/18/19 02:25 Calcium 9.0 mg/dL (8.4-10.5) 02/23/19 09:25 Phosphorus 4.8 mg/dL (2.5-4.5) H 02/22/19 07:15 Magnesium 1.8 mg/dL (1.7-2.2) 02/22/19 07:15 Total Bilirubin 0.3 mg/dL (0.2-1.3) 02/23/19 09:25 AST 20 U/L (14-36) 02/23/19 09:25 ALT 18 U/L (7-56) 02/23/19 09:25 Alkaline Phosphatase 57 U/L (38-126) 02/23/19 09:25 Total Protein 6.8 g/dL (5.8-8.3) 02/23/19 09:25 Albumin 3.5 g/dL (3.0-4.8) 02/23/19 09:25 Globulin 3.3 gm/dL 02/23/19 09:25 Albumin/Globulin Ratio 1.1 (1.1-1.8) 02/23/19 09:25 Triglycerides 148 mg/dL (35-160) 02/18/19 06:00 Cholesterol 142 mg/dL (130-200) 02/18/19 06:00 LDL Cholesterol Direct 80 mg/dL (0-129) 02/18/19 06:00 HDL Cholesterol 28 mg/dL (29-60) L 02/18/19 06:00 25-OH Vitamin D Total < 12.8 NG/ML (30.0-100.0) L 02/18/19 02:25 TSH 3rd Generation 1.98 mIU/mL (0.46-4.68) 02/18/19 02:25 Urine Color Straw (YELLOW) 02/18/19 03:00 Urine Appearance Sl cloudy (CLEAR) 02/18/19 03:00 Urine pH 6.0 (4.7-8.0) 02/18/19 03:00 Ur Specific [place] 1.010 (1.005-1.035) 02/18/19 03:00 Urine Protein Negative mg/dL (<30 mg/dL) 02/18/19 03:00 Urine Glucose (UA) >=1000 mg/dL (NEGATIVE) 02/18/19 03:00 Urine Ketones Negative mg/dL (NEGATIVE) 02/18/19 03:00 Urine Blood Trace-intact (NEGATIVE) H 02/18/19 03:00 Urine Nitrate Negative (NEGATIVE) 02/18/19 03:00 Urine Bilirubin Negative (NEGATIVE) 02/18/19 03:00 Urine Urobilinogen 0.2 E.U./dL (<1 E.U./dL) 02/18/19 03:00 Ur Leukocyte Esterase Trace Viet/uL (NEGATIVE) H 02/18/19 03:00 Urine RBC 0 - 2 /hpf (0-2) 02/18/19 03:00 Urine WBC 1 - 3 /hpf (0-6) 02/18/19 03:00 Ur Epithelial Cells 1 - 3 /hpf (0-5) 02/18/19 03:00 Urine Bacteria Few /hpf (NONE) 02/18/19 03:00 Urine Opiates Screen Negative (NEGATIVE) 02/18/19 03:00 Urine Methadone Screen Negative (NEGATIVE) 02/18/19 03:00 Ur Barbiturates Screen Negative (NEGATIVE) 02/18/19 03:00 Ur Phencyclidine Scrn Negative (NEGATIVE) 02/18/19 03:00 Ur Amphetamines Screen Negative (NEGATIVE) 02/18/19 03:00 U Benzodiazepines Scrn Negative (NEGATIVE) 02/18/19 03:00 U Oth Cocaine Metabols Negative (NEGATIVE) 02/18/19 03:00 U Cannabinoids Screen Negative (NEGATIVE) 02/18/19 03:00 - Hospital Course Hospital Course: 24F PMHx of DM2 and Intermittent Asthma presents to the ED with a 2 week history of headaches, abdominal discomfort, nausea, dizziness, blurry vision, bilateral generalized leg pains and not taking insulin for 2 months. Pt attributes this to running out of her home insulin, as this has happened before, however the symptoms are worse today than ever before. the Pt is frequently non compliant with her medication at home and frequently runs out of her supply. Pt does not follow up with a PMD, pt reports using [facility] ED services occasionally for her medical care. Pt says she has not seen a doctor in the office since she was a young child. ROS Pos: headaches, abdominal discomfort, nauseau, dizziness, blurry vision, bilateral generalized leg pains, med non compliance Neg: dysuria/urinary frequency, mental status changes, chest pain, SOB, fevers, chills, recent illness, sick contact, blood in urine/stool, syncope PMHx: DM2, Intermittent Asthma PSHx: denies FH: MOM - DM HTN Soc: smokes marijuana occasionally, denies ETOH, tobacco Allergies: peanuts, IV contrast, seafood Home Rx: Humalin 15u HS Novolog 7u SCHS Albuterol inh PRN HOSPITAL COURSE: Mrs Oswald was found to have an HgbA1c of 15.7. She was started on metformin 1000mg bid however she experienced nausea/vomiting thus her dose was decreased to 500mg bid and her symptoms improved. She was also started on glipizide 10mg bid. She was started on Humalin 70/30 28units ACB and 18units ACD - her ACB dose was reduced to 24units as she had 1 episode of hypoglycemia which resolved with orange juice. Gabapentin 200mg tid was started for her LE neuropathy - which provided relief. Transmissions Systems Operator, Dr Guerra, advised us on finding a suitable insulin/oral agent regimen. Physical therapy recommended home with services and homeless senior living information was provided. Discharge medications were delivered to bedside. Advised on importance of outpatient follow-up. We have created an appt with her to follow-up in [facility]. Discharge Exam - Head Exam Head Exam: ATRAUMATIC, NORMOCEPHALIC - Additional Findings Additional findings: - Constitutional Appears: Non-toxic, No Acute Distress - Head Exam Head Exam: ATRAUMATIC, NORMOCEPHALIC - Eye Exam Eye Exam: EOMI, Normal appearance. absent: Scleral icterus Pupil Exam: NORMAL ACCOMODATION, PERRL - ENT Exam ENT Exam: Mucous Membranes Moist, Normal Exam - Neck Exam Neck exam: Positive for: Full Rom. Negative for: Lymphadenopathy - Respiratory Exam Respiratory Exam: Clear to Auscultation Bilateral. absent: Rales, Wheezes, Stridor - Cardiovascular Exam Cardiovascular Exam: RRR, +S1, +S2 - GI/Abdominal Exam GI & Abdominal Exam: absent: Distended, Guarding, Rigid - Extremities Exam Extremities exam: Positive for: normal capillary refill. Negative for: pedal edema, tenderness - Back Exam Back exam: absent: CVA tenderness (L), CVA tenderness (R), rash noted - Neurological Exam Neurological exam: Alert, CN II-XII Intact, Normal Gait, Oriented x3 - Psychiatric Exam Psychiatric exam: Normal Affect, Normal Mood - Skin Skin Exam: Intact, Normal Color, Warm Discharge Plan - Discharge Medications Prescriptions: Gabapentin [Neurontin] 200 mg PO TID #90 capsule Glipizide [Glipizide ER] 10 mg PO BID #28 tab.er.[id number] Insulin NPH Human Isophane [Novolin N] 24 unit SQ ACB #1 vial Insulin NPH Human Isophane [Novolin N] 18 unit SQ ACD #1 vial - Follow Up Plan Condition: GOOD Disposition: HOME/ ROUTINE Instructions: Peripheral Neuropathy, Type 2 Diabetes, Diabetic Neuropathy, Insulin Injection, How to Give a Subcutaneous Injection, Hyperglycemia, Adult (DC) Additional Instructions: 1. Please follow up for your appointment at [facility] ([facility]) at [facility]: March 02 at 1 pm. Dianna finish all the appropriate [facility] paperwork and bring an ID. - Your Hemoglobin A1c (measure of blood sugar within 3 months) is 15.7 and very high. 2. You are being discharged on new medications. These medications were given to you at bedside. Please take as prescribed: - Metformin 500mg at 10AM and 6PM - Glipizide 10 mg at 10AM and 6PM - Gabapentin 100mg at 10AM, 2PM and 6PM - Albuterol inhaler - Novolin N Insulin take 24 units before breakfast and 18 units before dinner - If you experience symptoms of hypoglycemia such as dizziness or lightheaded then immediately drink an orange juice 3. Please do your best to incorporate healthy habits and an exercise regimen as this will also help to control your sugars. Please check your sugars at home and write them in a diary (you were given a device to check your sugars at home). Bring this diary to the [facility] on your appointment day. If you experience symptoms of hypoglycemia such as dizziness or lightheaded then immediately drink an orange juice. 4. Below is a list of homeless shelters that you may contact/visit. Also please refer to the information given to you by the high school social studies teacher in regards to homeless shelters all the necessary resources: [facility] ([facility]) (formerly [facility]) [address] [place] [id number] [facility] [address] [place] [address] [place] [employer] / [facility] [address] 5. Recommendations from physical therapy is for home with services. You are being given a script for this. 6. Please return to the nearest emergency department if your symptoms re-occur. Referrals: Lisa Alberts MD [Medical Doctor] - Yolanda Cross RN [Director Investment Banking] - <Shivani Najera - Last Filed: 02/23/19 17:15> Provider - Provider Date of Admission: 02/20/19 16:07 Attending physician: Shivani Najera MD Consults: 02/18/19 05:01 Endocrinology Consult Routine Comment: Consulting Provider: Terra Guerra Consulting Physician: Terra Guerra Reason for Consult: uncontrolled DM2, non compliant 02/18/19 09:22 Diabetic Education Referral Routine Comment: Physician Instructions: Reason For Exam: need supplies 02/22/19 22:22 Discharge Planning [Case Management Referral] Routine Comment: Physician Instructions: Reason For Exam: PT recommends home with services but pt homeless Reason for Referral: [facility] Eval 02/23/19 08:26 Discharge Planning [Case Management Referral] Routine Comment: Physician Instructions: Reason For Exam: pt cannot afford $30 for insulin Reason for Referral: Discharge Planning Hospital Course - Lab Results Lab Results: Micro Results 02/18/19 03:00 Urine,Clean Catch Urine Culture - Final Beta Hemolytic Strep Group B Most Recent Lab Values WBC 7.0 10^3/uL (4.5-11.0) 02/23/19 09:25 RBC 4.66 10^6/uL (3.5-6.1) 02/23/19 09:25 Hgb 12.2 g/dL (12.0-16.0) 02/23/19 09:25 Hct 38.0 % (36.0-48.0) 02/23/19 09:25 MCV 81.5 fl (80.0-105.0) 02/23/19 09:25 MCH 26.2 pg (25.0-35.0) 02/23/19 09:25 MCHC 32.1 g/dl (31.0-37.0) 02/23/19 09:25 RDW 12.5 % (11.5-14.5) 02/23/19 09:25 Plt Count 292 10^3/uL (120.0-450.0) 02/23/19 09:25 MPV 9.4 fl (7.0-11.0) 02/23/19 09:25 Neut % (Auto) 58.5 % (50.0-68.0) 02/23/19 09:25 Lymph % (Auto) 32.8 % (22.0-35.0) 02/23/19 09:25 [place] % (Auto) 6.2 % (1.0-6.0) H 02/23/19 09:25 Eos % (Auto) 2.4 % (1.5-5.0) 02/23/19 09:25 Baso % (Auto) 0.1 % (0.0-3.0) 02/23/19 09:25 Lymph # (Auto) 2.3 (1.2-3.4) 02/23/19 09:25 [place] # (Auto) 0.4 (0.1-0.6) 02/23/19 09:25 Eos # (Auto) 0.2 (0.0-0.7) 02/23/19 09:25 Baso # (Auto) 0.01 K/mm3 (0.0-2.0) 02/23/19 09:25 Absolute Neuts (auto) 4.08 (1.4-6.5) 02/23/19 09:25 Sodium 137 mmol/L (132-148) 02/23/19 09:25 Potassium 3.6 mmol/L (3.6-5.0) 02/23/19 09:25 Chloride 103 mmol/L (98-107) 02/23/19 09:25 Carbon Dioxide 26 mmol/L (21-33) 02/23/19 09:25 Anion Gap 12 (10-20) 02/23/19 09:25 BUN 7 mg/dL (7-21) 02/23/19 09:25 Creatinine 0.4 mg/dl (0.7-1.2) L 02/23/19 09:25 Est GFR ( Amer) > 60 02/23/19 09:25 Est GFR (Non-Af Amer) > 60 02/23/19 09:25 POC Glucose (mg/dL) 149 mg/dL (65-110) H 02/23/19 11:15 Random Glucose 110 mg/dL (70-110) 02/23/19 09:25 Hemoglobin A1c 15.7 % (4.2-6.5) H 02/18/19 02:25 Calcium 9.0 mg/dL (8.4-10.5) 02/23/19 09:25 Phosphorus 4.8 mg/dL (2.5-4.5) H 02/22/19 07:15 Magnesium 1.8 mg/dL (1.7-2.2) 02/22/19 07:15 Total Bilirubin 0.3 mg/dL (0.2-1.3) 02/23/19 09:25 AST 20 U/L (14-36) 02/23/19 09:25 ALT 18 U/L (7-56) 02/23/19 09:25 Alkaline Phosphatase 57 U/L (38-126) 02/23/19 09:25 Total Protein 6.8 g/dL (5.8-8.3) 02/23/19 09:25 Albumin 3.5 g/dL (3.0-4.8) 02/23/19 09:25 Globulin 3.3 gm/dL 02/23/19 09:25 Albumin/Globulin Ratio 1.1 (1.1-1.8) 02/23/19 09:25 Triglycerides 148 mg/dL (35-160) 02/18/19 06:00 Cholesterol 142 mg/dL (130-200) 02/18/19 06:00 LDL Cholesterol Direct 80 mg/dL (0-129) 02/18/19 06:00 HDL Cholesterol 28 mg/dL (29-60) L 02/18/19 06:00 25-OH Vitamin D Total < 12.8 NG/ML (30.0-100.0) L 02/18/19 02:25 TSH 3rd Generation 1.98 mIU/mL (0.46-4.68) 02/18/19 02:25 Urine Color Straw (YELLOW) 02/18/19 03:00 Urine Appearance Sl cloudy (CLEAR) 02/18/19 03:00 Urine pH 6.0 (4.7-8.0) 02/18/19 03:00 Ur Specific [place] 1.010 (1.005-1.035) 02/18/19 03:00 Urine Protein Negative mg/dL (<30 mg/dL) 02/18/19 03:00 Urine Glucose (UA) >=1000 mg/dL (NEGATIVE) 02/18/19 03:00 Urine Ketones Negative mg/dL (NEGATIVE) 02/18/19 03:00 Urine Blood Trace-intact (NEGATIVE) H 02/18/19 03:00 Urine Nitrate Negative (NEGATIVE) 02/18/19 03:00 Urine Bilirubin Negative (NEGATIVE) 02/18/19 03:00 Urine Urobilinogen 0.2 E.U./dL (<1 E.U./dL) 02/18/19 03:00 Ur Leukocyte Esterase Trace Viet/uL (NEGATIVE) H 02/18/19 03:00 Urine RBC 0 - 2 /hpf (0-2) 02/18/19 03:00 Urine WBC 1 - 3 /hpf (0-6) 02/18/19 03:00 Ur Epithelial Cells 1 - 3 /hpf (0-5) 02/18/19 03:00 Urine Bacteria Few /hpf (NONE) 02/18/19 03:00 Urine Opiates Screen Negative (NEGATIVE) 02/18/19 03:00 Urine Methadone Screen Negative (NEGATIVE) 02/18/19 03:00 Ur Barbiturates Screen Negative (NEGATIVE) 02/18/19 03:00 Ur Phencyclidine Scrn Negative (NEGATIVE) 02/18/19 03:00 Ur Amphetamines Screen Negative (NEGATIVE) 02/18/19 03:00 U Benzodiazepines Scrn Negative (NEGATIVE) 02/18/19 03:00 U Oth Cocaine Metabols Negative (NEGATIVE) 02/18/19 03:00 U Cannabinoids Screen Negative (NEGATIVE) 02/18/19 03:00 Attending/Attestation - Attestation I have personally seen and examined this patient.: Yes I have fully participated in the care of the patient.: Yes I have reviewed all pertinent clinical information, including history, physical exam and plan: Yes Notes (Text): 02/23/19 17:09 Medical record note made by the resident after discussion with my direction and input after the patient was personally seen and examined by me. I have reviewed the chart and agree that the record accurately reflects by personal performance of the history, physical exam, data review, and medical decision-making, in the course for the patient. I have also personally directed the plan of care. 24 year old female with past medical history of diabetes, asthma and medication noncompliance was admitted for uncontrolled diabetes blood sugars was 585. Finger sticks sugars improved with insulin and IVF. A1c is 15.7. Patient has been started glipizide, metformin, and NPH insulin . The issue of compliance with medication was discussed in detail with her. Patient has been advised to monitor her blood sugars and keep the record in the diary. Diabetic education was given prior to discharge. Patient will follow up with [facility]. Management plan was discussed in detail with patient. Education was provided.
[2019-02-23 14:59] VITALS: BP 97/62; PULSE 104; RESP 18; TEMP 98.7; O2SAT 99
[2019-02-23] MEDS ORDERED: Insulin Lispro (humaLOG) LOW Coverage SC SCH (16:30)
== END 2019-02-23 16:45 | disposition home or self-care (01) | DRG 420 ==
LOC: ED 01:58 → ERH 04:12 → 5RNO 06:44 → OBSVTOIN 02-20 16:07
PROVIDERS: ADMIT Hospitalist; ATTEND Internal Medicine
DX: E11.65 Type 2 diabetes mellitus with hyperglycemia (principal); J45.20 Mild intermittent asthma, uncomplicated; E11.40 Type 2 diabetes mellitus with diabetic neuropathy, unspecified; I10 Essential (primary) hypertension; Z91.14 Patient's other noncompliance with medication regimen; Z79.4 Long term (current) use of insulin; E78.5 Hyperlipidemia, unspecified; F12.90 Cannabis use, unspecified, uncomplicated; Z59.0 Homelessness; E66.3 Overweight; Z68.30 Body mass index [BMI] 30.0-30.9, adult; Z83.3 Family history of diabetes mellitus; Z82.49 Family history of ischemic heart disease and other diseases of the circulatory system

== ENCOUNTER 2019-03-23 00:49 | Observation (INO) | payer MEDICAID, OTHER ==
[2019-03-23 00:57] VITALS: BMI 29.7
[2019-03-23] MEDS ORDERED: Sodium Chloride 0.9% 1,000 ML IV STA (01:06)
--- NOTE | 2019-03-23 01:20 | ED PDOC ---
Arrival/HPI - General Chief Complaint: High Blood Sugar Time Seen by Provider: 03/23/19 00:58 - History of Present Illness Narrative History of Present Illness (Text): 24 yr old female w/ hx of DM2 p/w high blood sugar. Pt notes high blood sugar and epigastric abdominal pain. Shes notes elevated blood sugar in the 400s because she has not been able to take her insulin. She notes that she was at [facility] recently and admitted, went to free clinic and was given insulin for home. She notes taking insulin home and using it, and was told that she would receive insurance papers to receive more medications. She has not received her insurance of new medications however and has ran out of her insulin. She otherwise denies any fever, constipation, cough, chest pain, shortness of breath, rash, dark or bloody stool, vaginal d/c, dysuria. She notes that her abdominal pain feel like a throbbing. She notes x2 episodes of vomiting, nonbilious, non dark. No other complaints. Past Medical History - Infectious Disease Hx of Infectious Diseases: None - Cardiac Hx Hypertension: Yes - Pulmonary Hx Asthma: Yes - Neurological Hx Dizziness: Yes - Endocrine/Metabolic Hx Diabetes Mellitus Type 2: Yes - Musculoskeletal/Rheumatological Hx Falls: No - Psychiatric Hx Substance Use: No - Anesthesia Hx Anesthesia: No Hx Anesthesia Reactions: No Hx Malignant Hyperthermia: No Family/Social History Family/Social History: Unknown Family HX Smoking Status: Never Smoked Hx Alcohol Use: No Hx Substance Use: No Allergies/Home Meds Allergies/Adverse Reactions: Allergies peanut Allergy (Verified 03/23/19 01:05) ANAPHYLAXIS iv contrast Allergy (Uncoded 03/23/19 01:05) ANAPHYLAXIS seafood Allergy (Uncoded 03/23/19 01:05) ANAPHYLAXIS Review of Systems - Review of Systems Constitutional: absent: Fatigue, Weight Change Eyes: absent: Vision Changes, Photophobia ENT: absent: Hearing Changes, Tinnitus Respiratory: absent: SOB, Cough, Sputum, Wheezing Cardiovascular: absent: Chest Pain, Palpitations Gastrointestinal: Abdominal Pain. absent: Stool Changes, Constipation, Diarrhea, Nausea, Vomiting, Appetite Changes, Hematochezia Genitourinary Female: absent: Dysuria, Frequency, Hematuria Musculoskeletal: absent: Arthralgias, Back Pain Skin: absent: Rash, Pruritis Neurological: absent: Headache, Dizziness Endocrine: absent: Diaphoresis, Polyuria Hemo/Lymphatic: absent: Adenopathy, Easy Bleeding Psychiatric: absent: Anxiety, Depression Physical Exam Vital Signs Temp Pulse Resp BP Pulse Ox 03/23/19 00:59 97.2 F L 103 H 18 113/82 97 Temperature: Afebrile Blood Pressure: Normal Pulse: Tachycardic Respiratory Rate: Normal Appearance: Positive for: Well-Appearing, Non-Toxic, Comfortable Pain Distress: None Mental Status: Positive for: Alert and Oriented X 3 Finger Stick Blood Glucose: 417 - Systems Exam Head: Present: Atraumatic, Normocephalic Pupils: Present: PERRL Extroacular Muscles: Present: EOMI Conjunctiva: Present: Normal Ears: Present: Normal, NORMAL TM Mouth: Present: Moist Mucous Membranes Pharnyx: Present: Normal. No: ERYTHEMA, EXUDATE, TONSILS ENLARGED Nose (External): Present: Atraumatic. No: Abrasion Nose (Internal): Present: Normal Inspection, No Active Bleeding Neck: Present: Normal Range of Motion. No: Meningeal Signs, MIDLINE TENDERNESS Respiratory/Chest: Present: Clear to Auscultation, Good Air Exchange. No: Respiratory Distress, Accessory Muscle Use Cardiovascular: Present: Regular Rate and Rhythm, Normal S1, S2. No: Murmurs Abdomen: Present: Tenderness (epigastric). No: Distention, Peritoneal Signs, McBurney's Point Tender, Rovsing's Sign Present Back: Present: Normal Inspection. No: CVA Tenderness, Midline Tenderness Upper Extremity: Present: Normal Inspection, NORMAL PULSES, Neurovascularly Intact. No: Cyanosis, Edema Lower Extremity: Present: Normal Inspection, NORMAL PULSES, Neurovascularly Intact. No: Edema, CALF TENDERNESS Neurological: Present: GCS=15, CN II-XII Intact, Speech Normal Skin: Present: Warm, Dry, Normal Color. No: Rashes Psychiatric: Present: Alert, Oriented x 3, Normal Insight, Normal Concentration Medical Decision Making ED Course and Treatment: 24 yr old female w/ hx of DM2 p/w elevated BS and epigastric abd pain. No rebounding or RLQ / periumbical or RUQ pain. No abnl vaginal d/c or rash. No fall or trauma. She notes that she last ate [employer]. No dark or bloody stool or diarrhea. Likely gastritis vs Elevated BS causing pain. Given no insulin at home, no insurance pt will likely require obs for further eval. Pt in NAD, pending imaging and labs. 03/23/19 03:20 cxr unremarkable No DKA or hyperosmolar per labs pt in NAD mild uti w/ out CVAT, will rx given hyperglycemia and without home meds consulted Dr. Berry for admission: to admit to hospitalist service - RAD Interpretation Radiology Orders: 03/23/19 01:12 CHEST PORTABLE [RAD] Stat - Medication Orders Current Medication Orders: Sodium Chloride (Sodium Chloride 0.9%) 1,000 mls @ 999 mls/hr IV .Q1H1M STA Stop: 03/23/19 02:06 Discontinued Medications Famotidine (Pepcid) 20 mg IVP STAT STA Stop: 03/23/19 01:13 Disposition/Present on Arrival - Present on Arrival Any Indicators Present on Arrival: No History of DVT/PE: No History of Uncontrolled Diabetes: No Urinary Catheter: No History of Decub. Ulcer: No History Surgical Site Infection Following: None - Disposition Have Diagnosis and Disposition been Completed?: Yes Diagnosis: Hyperglycemia Disposition: HOSPITALIZED Disposition Time: 03:22 Condition: STABLE Forms: [employer] (Guatemalan)
[2019-03-23 02:02] LABS: BASO # 0.03 K/mm3 (0.0-2.0); BASO % 0.4 % (0.0-3.0); EOS # 0.2 (0.0-0.7); EOS % 2.8 % (1.5-5.0); HEMOGLOBIN 12.5 g/dL (12.0-16.0); LYMPH # 2.9 (1.2-3.4); LYMPH % 36.6 % (22.0-35.0); MEAN CELL VOLUME 80.3 fl (80.0-105.0); MEAN CORPUSCULAR HEMOGLOBIN 26.5 pg (25.0-35.0); MEAN PLATELET VOLUME 10.2 fl (7.0-11.0); MONO # 0.5 (0.1-0.6); MONO % 5.8 % (1.0-6.0); RBC 4.72 10^6/uL (3.5-6.1); RED CELL DISTRIBUTION WIDTH 12.4 % (11.5-14.5); WHITE BLOOD COUNT 7.9 10^3/uL (4.5-11.0)
[2019-03-23 02:04] LABS: VENOUS BLOOD GAS BASE EXCESS 0.4 mmol/L (0.0-2.0); VENOUS BLOOD GAS PO2 32 mm/Hg (30-55); VENOUS BLOOD PH 7.31 (7.32-7.43)
[2019-03-23 02:39] LABS: URINE BILIRUBIN NEGATIVE (NEGATIVE); URINE BLOOD NEGATIVE (NEGATIVE); URINE GLUCOSE (UA) >=1000 mg/dL (NEGATIVE); URINE LEUKOCYTE ESTERASE TRACE Leu/uL (NEGATIVE); URINE PROTEIN NEGATIVE mg/dL (<30 mg/dL); URINE UROBILINOGEN 0.2 E.U./dL (<1 E.U./dL)
[2019-03-23 02:43] LABS: URINE APPEARANCE SL CLOUDY (CLEAR); URINE COLOR YELLOW (YELLOW)
[2019-03-23 03:01] LABS: ALB/GLOB RATIO 1.2 (1.1-1.8); ALBUMIN 4.3 g/dL (3.0-4.8); ALT/SGPT < 6 U/L (7-56); AST/SGOT 23 U/L (14-36); BLOOD UREA NITROGEN 10 mg/dL (7-21); CALCIUM 8.9 mg/dL (8.4-10.5); GFR NON-AFRICAN AMERICAN > 60; LIPASE 138 U/L (23-300)
[2019-03-23 03:05] LABS: URINE BACTERIA TRACE /hpf; URINE RBC 0 - 2 /hpf (0-2)
--- NOTE | 2019-03-23 03:17 | CP.PCM.HP ---
History of Present Illness - History of Present Illness History of Present Illness: Bethel Alfaro, DO PGY-1 H&P Note for Dr. Jamal Hi: elevated blood glucose/abd pain 24 year old female with PMH of uncontrolled DM2 with neuropathy, medication noncompliance, intermittent asthma presents to the ED with Patient admitted for uncontrolled diabetes with hyperglycemia on 02/10 and discharged home to f/u with PMD She denies recent illness/sick contacts She denies CP, SOB, palpitations, fever, chills, N/V/D PMHx: DM2, Intermittent Asthma PSHx: denies FH: MOM - DM HTN Soc: smokes marijuana occasionally, denies ETOH, tobacco Allergies: peanuts, IV contrast, seafood Home Rx: Humalin 15u HS, Novolog 7u SCHS, Albuterol inh PRN Past Patient History - Infectious Disease Hx of Infectious Diseases: None - Past Social History Smoking Status: Never Smoked - CARDIAC Hx Hypertension: Yes - PULMONARY Hx Asthma: Yes - NEUROLOGICAL Hx Dizziness: Yes - ENDOCRINE/METABOLIC Hx Diabetes Mellitus Type 2: Yes - MUSCULOSKELETAL/RHEUMATOLOGICAL Hx Falls: No - PSYCHIATRIC Hx Substance Use: No - SURGICAL HISTORY Hx Surgeries: No - ANESTHESIA Hx Anesthesia: No Hx Anesthesia Reactions: No Hx Malignant Hyperthermia: No Meds Allergies/Adverse Reactions: Allergies Allergy/AdvReac Type Severity Reaction Status Date / Time peanut Allergy ANAPHYLAXIS Verified 03/23/19 01:05 iv contrast Allergy ANAPHYLAXIS Uncoded 03/23/19 01:05 seafood Allergy ANAPHYLAXIS Uncoded 03/23/19 01:05 Results - Vital Signs Recent Vital Signs: Last Vital Signs Temp 97.2 F L 03/23/19 00:59 Pulse 103 H 03/23/19 00:59 Resp 18 03/23/19 00:59 BP 113/82 03/23/19 00:59 Pulse Ox 97 03/23/19 00:59 - Labs Result Diagrams: 03/23/19 01:39 03/23/19 02:15 Labs: Laboratory Results - last 24 hr 03/23/19 03/23/19 03/23/19 01:39 01:48 01:55 WBC 7.9 RBC 4.72 Hgb 12.5 Hct 37.9 MCV 80.3 MCH 26.5 MCHC 33.0 RDW 12.4 Plt Count 295 MPV 10.2 Neut % (Auto) 54.4 Lymph % (Auto) 36.6 H [place] % (Auto) 5.8 Eos % (Auto) 2.8 Baso % (Auto) 0.4 Lymph # (Auto) 2.9 [place] # (Auto) 0.5 Eos # (Auto) 0.2 Baso # (Auto) 0.03 Absolute Neuts (auto) 4.31 pO2 32 VBG pH 7.31 L VBG pCO2 55.0 VBG HCO3 27.7 VBG O2 Sat (Calc) 59.4 VBG Base Excess 0.4 Sodium Potassium Chloride Carbon Dioxide Anion Gap BUN Creatinine Est GFR ( Amer) Est GFR (Non-Af Amer) Random Glucose Serum Osmolality Calcium Total Bilirubin AST ALT Alkaline Phosphatase Total Protein Albumin Globulin Albumin/Globulin Ratio Lipase Urine Color Yellow Urine Appearance Sl cloudy Urine pH 6.0 Ur Specific [place] 1.015 Urine Protein Negative Urine Glucose (UA) >=1000 Urine Ketones Negative Urine Blood Negative Urine Nitrate Negative Urine Bilirubin Negative Urine Urobilinogen 0.2 Ur Leukocyte Esterase Trace H Urine RBC 0 - 2 Urine WBC 5 - 10 H Ur Epithelial Cells 1 - 3 Urine Bacteria Trace Urine Other Uyeast 03/23/19 03/23/19 02:15 02:15 WBC RBC Hgb Hct MCV MCH MCHC RDW Plt Count MPV Neut % (Auto) Lymph % (Auto) [place] % (Auto) Eos % (Auto) Baso % (Auto) Lymph # (Auto) [place] # (Auto) Eos # (Auto) Baso # (Auto) Absolute Neuts (auto) pO2 VBG pH VBG pCO2 VBG HCO3 VBG O2 Sat (Calc) VBG Base Excess Sodium 138 Potassium 4.3 Chloride 99 Carbon Dioxide 26 Anion Gap 17 BUN 10 Creatinine 0.4 L Est GFR ( Amer) > 60 Est GFR (Non-Af Amer) > 60 Random Glucose 433 H* D Serum Osmolality 314 H Calcium 8.9 Total Bilirubin 0.4 AST 23 ALT < 6 L Alkaline Phosphatase 82 Total Protein 7.9 Albumin 4.3 Globulin 3.6 Albumin/Globulin Ratio 1.2 Lipase 138 Urine Color Urine Appearance Urine pH Ur Specific [place] Urine Protein Urine Glucose (UA) Urine Ketones Urine Blood Urine Nitrate Urine Bilirubin Urine Urobilinogen Ur Leukocyte Esterase Urine RBC Urine WBC Ur Epithelial Cells Urine Bacteria Urine Other Assessment & Plan - Assessment and Plan (Free Text) Assessment: 24 year old female with PMH of uncontrolled DM2 and medication noncompliance, asthma admitted for uncontrolled diabetes with hyperglycemia Plan: Hyperglycemia in the setting of Uncontrolled DM -BG 433 on admission,improved with insulin and IVF -IVF NS @100 cc/hr -continue zofran, pepcid IVP -ISS-M -accucheck -HgbA1c of 15.7 (02/10) -Humalin 70/30 28units ACB and 18units ACD -NPO -UA: no ketones -diabetic educatoin -Rehabilitation Worker, Dr Guerra Nausea and Vomiting -Side Effects of DM Medications -zofran LE neuropathy -Gabapentin 200mg tid -PT h/o intermittent Asthma -patient asymptomatic -ventolin q6 prn -duoneb prn PPX: DVT: SCD GI: protonix Diet: CCD Case reviewed and plan discussed with Dr Jamal Alfaro, DO PGY1
[2019-03-23 03:22] LABS: VENOUS BLOOD GAS BASE EXCESS -1.4 mmol/L (0.0-2.0); VENOUS BLOOD GAS PO2 37 mm/Hg (30-55); VENOUS BLOOD PH 7.28 (7.32-7.43)
[2019-03-23] MEDS ORDERED: Albuterol 0.083% Inhal Sol (2.5 mg/3 mL) UD IH PRN (04:43)
--- NOTE | 2019-03-23 04:47 | CP.PCM.HP ---
<AngelinaBethel - Last Filed: 03/23/19 05:00> History of Present Illness - History of Present Illness History of Present Illness: Bethel Alfaro DO PGY-1 H&P Note for Dr. Jamal Hi: elevated blood glucose/ nausea/vomiting 24 year old female with PMH of uncontrolled DM2 with neuropathy, medication noncompliance, intermittent asthma presents to the ED with high blood sugar of 430 at home associated with nausea and NBNB vomiting x2 earlier today but now resolved. Patient states that she got URI few days ago with symptoms of runny nose and sore throat. She denies CP, SOB, cough, palpitations, calf muscle tenderness, DODSON, dizziness, fever, chills, diarrhea. Patient admitted for uncontrolled diabetes with hyperglycemia on 02/10 and discharged home to f/u with PMD and take her oral diabetic meds and insulin. Patient reports compliance with her oral meds but she does not have insulin because of insurance. She denies sick contacts/recent travel. 12 points ROS reviewed and otherwise negative PMHx: DM2, Intermittent Asthma PSHx: denies FH: mother- DM HTN Soc: smokes marijuana occasionally, denies ETOH, tobacco Allergies: peanuts, IV contrast, seafood Home Rx: metformin 500mg bid, glipizide 5 mg daily, Albuterol inh PRN Present on Admission - Present on Admission Any Indicators Present on Admission: No Past Patient History - Infectious Disease Hx of Infectious Diseases: None - Past Social History Smoking Status: Never Smoked - CARDIAC Hx Hypertension: Yes - PULMONARY Hx Asthma: Yes - NEUROLOGICAL Hx Dizziness: Yes - ENDOCRINE/METABOLIC Hx Diabetes Mellitus Type 2: Yes - MUSCULOSKELETAL/RHEUMATOLOGICAL Hx Falls: No - PSYCHIATRIC Hx Substance Use: No - SURGICAL HISTORY Hx Surgeries: No - ANESTHESIA Hx Anesthesia: No Hx Anesthesia Reactions: No Hx Malignant Hyperthermia: No Meds Allergies/Adverse Reactions: Allergies Allergy/AdvReac Type Severity Reaction Status Date / Time peanut Allergy ANAPHYLAXIS Verified 03/23/19 01:05 iv contrast Allergy ANAPHYLAXIS Uncoded 03/23/19 01:05 seafood Allergy ANAPHYLAXIS Uncoded 03/23/19 01:05 Physical Exam - Constitutional Appears: Well, Non-toxic, No Acute Distress - Head Exam Head Exam: ATRAUMATIC, NORMAL INSPECTION, NORMOCEPHALIC - Eye Exam Eye Exam: EOMI, Normal appearance, PERRL Pupil Exam: NORMAL ACCOMODATION, PERRL - ENT Exam ENT Exam: Mucous Membranes Moist, Normal Exam - Neck Exam Neck exam: Positive for: Normal Inspection - Respiratory Exam Respiratory Exam: Clear to Auscultation Bilateral, NORMAL BREATHING PATTERN - Cardiovascular Exam Cardiovascular Exam: REGULAR RHYTHM, +S1, +S2. absent: Gallop, RRR, Rubs - GI/Abdominal Exam GI & Abdominal Exam: Normal Bowel Sounds, Soft. absent: Guarding, Mass, Rebound, Rigid, Tenderness - Extremities Exam Extremities exam: Positive for: full ROM, normal capillary refill, normal inspection, pedal pulses present. Negative for: calf tenderness - Back Exam Back exam: NORMAL INSPECTION. absent: CVA tenderness (L), CVA tenderness (R) - Neurological Exam Neurological exam: Alert, CN II-XII Intact, Normal Gait, Oriented x3, Reflexes Normal - Psychiatric Exam Psychiatric exam: Normal Affect, Normal Mood Results - Vital Signs Recent Vital Signs: Last Vital Signs Temp 97.2 F L 03/23/19 00:59 Pulse 94 H 03/23/19 04:04 Resp 14 03/23/19 04:04 BP 124/87 03/23/19 04:04 Pulse Ox 100 03/23/19 04:04 - Labs Result Diagrams: 03/23/19 01:39 03/23/19 02:15 Labs: Laboratory Results - last 24 hr 03/23/19 03/23/19 03/23/19 01:39 01:48 01:55 WBC 7.9 RBC 4.72 Hgb 12.5 Hct 37.9 MCV 80.3 MCH 26.5 MCHC 33.0 RDW 12.4 Plt Count 295 MPV 10.2 Neut % (Auto) 54.4 Lymph % (Auto) 36.6 H [place] % (Auto) 5.8 Eos % (Auto) 2.8 Baso % (Auto) 0.4 Lymph # (Auto) 2.9 [place] # (Auto) 0.5 Eos # (Auto) 0.2 Baso # (Auto) 0.03 Absolute Neuts (auto) 4.31 pO2 32 VBG pH 7.31 L VBG pCO2 55.0 VBG HCO3 27.7 VBG Total CO2 VBG O2 Sat (Calc) 59.4 VBG Base Excess 0.4 VBG Potassium Glucose Lactate FiO2 Crit Value Called To Crit Value Called By Blood Gas Notified Time Sodium Potassium Chloride Carbon Dioxide Anion Gap BUN Creatinine Est GFR ( Amer) Est GFR (Non-Af Amer) Random Glucose Serum Osmolality Calcium Total Bilirubin AST ALT Alkaline Phosphatase Total Protein Albumin Globulin Albumin/Globulin Ratio Lipase Venous Blood Potassium Urine Color Yellow Urine Appearance Sl cloudy Urine pH 6.0 Ur Specific [place] 1.015 Urine Protein Negative Urine Glucose (UA) >=1000 Urine Ketones Negative Urine Blood Negative Urine Nitrate Negative Urine Bilirubin Negative Urine Urobilinogen 0.2 Ur Leukocyte Esterase Trace H Urine RBC 0 - 2 Urine WBC 5 - 10 H Ur Epithelial Cells 1 - 3 Urine Bacteria Trace Urine Other Uyeast 03/23/19 03/23/19 03/23/19 02:15 02:15 02:47 WBC RBC Hgb Hct MCV MCH MCHC RDW Plt Count MPV Neut % (Auto) Lymph % (Auto) [place] % (Auto) Eos % (Auto) Baso % (Auto) Lymph # (Auto) [place] # (Auto) Eos # (Auto) Baso # (Auto) Absolute Neuts (auto) pO2 37 VBG pH 7.28 L VBG pCO2 56.0 VBG HCO3 26.3 VBG Total CO2 28.0 VBG O2 Sat (Calc) 67.0 H VBG Base Excess -1.4 L VBG Potassium 5.7 H Glucose 432 H* Lactate 2.1 FiO2 21.0 Crit Value Called To Smiley Crit Value Called By Blood Gas Notified Time 310 Sodium 138 135.0 Potassium 4.3 Chloride 99 99.0 Carbon Dioxide 26 Anion Gap 17 BUN 10 Creatinine 0.4 L Est GFR ( Amer) > 60 Est GFR (Non-Af Amer) > 60 Random Glucose 433 H* D Serum Osmolality 314 H Calcium 8.9 Total Bilirubin 0.4 AST 23 ALT < 6 L Alkaline Phosphatase 82 Total Protein 7.9 Albumin 4.3 Globulin 3.6 Albumin/Globulin Ratio 1.2 Lipase 138 Venous Blood Potassium 5.7 H Urine Color Urine Appearance Urine pH Ur Specific [place] Urine Protein Urine Glucose (UA) Urine Ketones Urine Blood Urine Nitrate Urine Bilirubin Urine Urobilinogen Ur Leukocyte Esterase Urine RBC Urine WBC Ur Epithelial Cells Urine Bacteria Urine Other Assessment & Plan - Assessment and Plan (Free Text) Assessment: 24 year old female with PMH of uncontrolled DM2 and medication noncompliance, asthma admitted for uncontrolled diabetes with hyperglycemia Plan: Hyperglycemia in the setting of Uncontrolled DM -BG 433 on admission,improved with insulin and IVF -patient asymptomatic, afebrile, no leukocytosis, lactate not elevated -VBG shows lactic acidosis due to hyperglycemia. No DKA -HgbA1c of 15.7 (02/10) -accucheck -Humalin 70/30 24units ACB and 18units ACD -glipizide 5mg bid -UA: +glucose, no ketones. LE trace -continue zofran, pepcid IVP -diabetic educatoin -zofran prn LE neuropathy: -resume home med gabapentin 200mg tid -PT h/o intermittent Asthma: -patient asymptomatic -ventolin q6 prn -duoneb prn PPX: DVT: SCD GI: pepcid Diet: CCD Case reviewed and plan discussed with Dr Jamal Alfaro, DO PGY1 <sEtuardo Berry - Last Filed: 03/23/19 06:49> Results - Vital Signs Recent Vital Signs: Last Vital Signs Temp 97.2 F L 03/23/19 00:59 Pulse 94 H 03/23/19 05:42 Resp 14 03/23/19 05:42 BP 124/87 03/23/19 05:42 Pulse Ox 100 03/23/19 05:42 - Labs Result Diagrams: 03/23/19 01:39 03/23/19 02:15 Labs: Laboratory Results - last 24 hr 03/23/19 03/23/19 03/23/19 01:39 01:48 01:55 WBC 7.9 RBC 4.72 Hgb 12.5 Hct 37.9 MCV 80.3 MCH 26.5 MCHC 33.0 RDW 12.4 Plt Count 295 MPV 10.2 Neut % (Auto) 54.4 Lymph % (Auto) 36.6 H [place] % (Auto) 5.8 Eos % (Auto) 2.8 Baso % (Auto) 0.4 Lymph # (Auto) 2.9 [place] # (Auto) 0.5 Eos # (Auto) 0.2 Baso # (Auto) 0.03 Absolute Neuts (auto) 4.31 pO2 32 VBG pH 7.31 L VBG pCO2 55.0 VBG HCO3 27.7 VBG Total CO2 VBG O2 Sat (Calc) 59.4 VBG Base Excess 0.4 VBG Potassium Glucose Lactate FiO2 Crit Value Called To Crit Value Called By Blood Gas Notified Time Sodium Potassium Chloride Carbon Dioxide Anion Gap BUN Creatinine Est GFR ( Amer) Est GFR (Non-Af Amer) Random Glucose Serum Osmolality Calcium Total Bilirubin AST ALT Alkaline Phosphatase Total Protein Albumin Globulin Albumin/Globulin Ratio Lipase Venous Blood Potassium Urine Color Yellow Urine Appearance Sl cloudy Urine pH 6.0 Ur Specific [place] 1.015 Urine Protein Negative Urine Glucose (UA) >=1000 Urine Ketones Negative Urine Blood Negative Urine Nitrate Negative Urine Bilirubin Negative Urine Urobilinogen 0.2 Ur Leukocyte Esterase Trace H Urine RBC 0 - 2 Urine WBC 5 - 10 H Ur Epithelial Cells 1 - 3 Urine Bacteria Trace Urine Other Uyeast 03/23/19 03/23/19 03/23/19 02:15 02:15 02:47 WBC RBC Hgb Hct MCV MCH MCHC RDW Plt Count MPV Neut % (Auto) Lymph % (Auto) [place] % (Auto) Eos % (Auto) Baso % (Auto) Lymph # (Auto) [place] # (Auto) Eos # (Auto) Baso # (Auto) Absolute Neuts (auto) pO2 37 VBG pH 7.28 L VBG pCO2 56.0 VBG HCO3 26.3 VBG Total CO2 28.0 VBG O2 Sat (Calc) 67.0 H VBG Base Excess -1.4 L VBG Potassium 5.7 H Glucose 432 H* Lactate 2.1 FiO2 21.0 Crit Value Called To Smiley Crit Value Called By Blood Gas Notified Time 310 Sodium 138 135.0 Potassium 4.3 Chloride 99 99.0 Carbon Dioxide 26 Anion Gap 17 BUN 10 Creatinine 0.4 L Est GFR ( Amer) > 60 Est GFR (Non-Af Amer) > 60 Random Glucose 433 H* D Serum Osmolality 314 H Calcium 8.9 Total Bilirubin 0.4 AST 23 ALT < 6 L Alkaline Phosphatase 82 Total Protein 7.9 Albumin 4.3 Globulin 3.6 Albumin/Globulin Ratio 1.2 Lipase 138 Venous Blood Potassium 5.7 H Urine Color Urine Appearance Urine pH Ur Specific [place] Urine Protein Urine Glucose (UA) Urine Ketones Urine Blood Urine Nitrate Urine Bilirubin Urine Urobilinogen Ur Leukocyte Esterase Urine RBC Urine WBC Ur Epithelial Cells Urine Bacteria Urine Other Attending/Attestation - Attestation I have personally seen and examined this patient.: Yes I have fully participated in the care of the patient.: Yes I have reviewed all pertinent clinical information: Yes
[2019-03-23] MEDS ORDERED: Albuterol HFA 90 mcg/actuation (8 g) IH PRN (05:10)
[2019-03-23] MEDS ORDERED: Insulin Regular 1 UNITS/0.01 ML ML SC STA (06:58)
[2019-03-23] MEDS ORDERED: Insulin Human NPH 1 UNITS/0.01 ML SC SCH ×3 (07:30→16:30)
[2019-03-23 08:23] LABS: VENOUS BLOOD GAS PO2 83 mm/Hg (30-55)
[2019-03-23 08:25] LABS: HEMOGLOBIN 11.2 g/dL (12.0-16.0); MEAN CELL VOLUME 79.3 fl (80.0-105.0); MEAN CORPUSCULAR HEMOGLOBIN 25.8 pg (25.0-35.0); MEAN CORPUSCULAR HGB CONC 32.6 g/dl (31.0-37.0); MEAN PLATELET VOLUME 9.3 fl (7.0-11.0); RBC 4.34 10^6/uL (3.5-6.1); WHITE BLOOD COUNT 7.5 10^3/uL (4.5-11.0)
[2019-03-23] MEDS: Insulin Lispro (humaLOG) LOW Coverage SC SCH ×3 (08:33→17:42)
--- NOTE | 2019-03-23 09:19 | RAD ---
Date of service: 03/23/2019 HISTORY: elevated glucose COMPARISON: No prior. TECHNIQUE: 1 view obtained. FINDINGS: LUNGS: No active pulmonary disease. PLEURA: No significant pleural effusion identified, no pneumothorax apparent. CARDIOVASCULAR: No aortic atherosclerotic calcification present. Normal cardiac size. No pulmonary vascular congestion. OSSEOUS STRUCTURES: No significant abnormalities. VISUALIZED UPPER ABDOMEN: Normal. OTHER FINDINGS: None. IMPRESSION: No active disease.
[2019-03-23 09:23] LABS: BLOOD UREA NITROGEN 7 mg/dL (7-21); CALCIUM 8.7 mg/dL (8.4-10.5); GFR NON-AFRICAN AMERICAN > 60
[2019-03-23] MEDS ORDERED: GlipiZIDE 5 mg SR Tab PO SCH (10:00)
[2019-03-23] MEDS: GlipiZIDE 10 mg SR Tab PO SCH (17:43)
[2019-03-23] MEDS ORDERED: Insulin Human NPH/Reg 70/30 Vial(3 ml) SC SCH (18:00)
[2019-03-24 07:41] LABS: HEMOGLOBIN 12.1 g/dL (12.0-16.0); MEAN CELL VOLUME 79.7 fl (80.0-105.0); MEAN CORPUSCULAR HEMOGLOBIN 26.1 pg (25.0-35.0); MEAN CORPUSCULAR HGB CONC 32.8 g/dl (31.0-37.0); MEAN PLATELET VOLUME 9.2 fl (7.0-11.0); RBC 4.63 10^6/uL (3.5-6.1); RED CELL DISTRIBUTION WIDTH 12.3 % (11.5-14.5); WHITE BLOOD COUNT 6.9 10^3/uL (4.5-11.0)
[2019-03-24 07:52] VITALS: BP 114/74; PULSE 87; RESP 20; TEMP 98.3; O2SAT 96
[2019-03-24 07:56] LABS: BLOOD UREA NITROGEN 8 mg/dL (7-21); CALCIUM 9.2 mg/dL (8.4-10.5); GFR NON-AFRICAN AMERICAN > 60
[2019-03-24] MEDS: Insulin Lispro (humaLOG) LOW Coverage SC SCH ×2 (08:40→11:57)
[2019-03-24] MEDS ORDERED: Insulin Human NPH/Reg 70/30 Vial(3 ml) SC SCH (08:54)
[2019-03-24] MEDS: GlipiZIDE 10 mg SR Tab PO SCH (09:10)
--- NOTE | 2019-03-24 09:34 | CP.PCM.DIS ---
<SameervolodymyrGracie sorto - Last Filed: 03/24/19 15:00> Provider - Provider Date of Admission: 03/23/19 04:05 Attending physician: Jennifer Torres MD Consults: 03/23/19 05:05 Social Work Referral Routine Comment: Patient recently evicted from home, homeless Physician Instructions: Reason For Exam: Protocol 03/23/19 05:09 Diabetic Education Referral Routine Comment: Physician Instructions: Reason For Exam: uncontrolled DM. meds non compliance 03/23/19 06:54 Diabetic Education Referral Routine Comment: Physician Instructions: Reason For Exam: protocol Time Spent in preparation of Discharge (in minutes): 60 Hospital Course - Lab Results Lab Results: Most Recent Lab Values WBC 6.9 10^3/uL (4.5-11.0) 03/24/19 07:20 RBC 4.63 10^6/uL (3.5-6.1) 03/24/19 07:20 Hgb 12.1 g/dL (12.0-16.0) 03/24/19 07:20 Hct 36.9 % (36.0-48.0) 03/24/19 07:20 MCV 79.7 fl (80.0-105.0) L 03/24/19 07:20 MCH 26.1 pg (25.0-35.0) 03/24/19 07:20 MCHC 32.8 g/dl (31.0-37.0) 03/24/19 07:20 RDW 12.3 % (11.5-14.5) 03/24/19 07:20 Plt Count 267 10^3/uL (120.0-450.0) 03/24/19 07:20 MPV 9.2 fl (7.0-11.0) 03/24/19 07:20 Neut % (Auto) 54.4 % (50.0-68.0) 03/23/19 01:39 Lymph % (Auto) 36.6 % (22.0-35.0) H 03/23/19 01:39 [place] % (Auto) 5.8 % (1.0-6.0) 03/23/19 01:39 Eos % (Auto) 2.8 % (1.5-5.0) 03/23/19 01:39 Baso % (Auto) 0.4 % (0.0-3.0) 03/23/19 01:39 Lymph # (Auto) 2.9 (1.2-3.4) 03/23/19 01:39 [place] # (Auto) 0.5 (0.1-0.6) 03/23/19 01:39 Eos # (Auto) 0.2 (0.0-0.7) 03/23/19 01:39 Baso # (Auto) 0.03 K/mm3 (0.0-2.0) 03/23/19 01:39 Absolute Neuts (auto) 4.31 (1.4-6.5) 03/23/19 01:39 pO2 83 mm/Hg (30-55) H 03/23/19 08:00 VBG pH 7.40 (7.32-7.43) 03/23/19 08:00 VBG pCO2 42.0 (40-60) 03/23/19 08:00 VBG HCO3 26.0 mmol/l (21-28) 03/23/19 08:00 VBG Total CO2 27.3 mmol.L (22-28) 03/23/19 08:00 VBG O2 Sat (Calc) 97.5 % (40-65) H 03/23/19 08:00 VBG Base Excess 1.0 mmol/L (0.0-2.0) 03/23/19 08:00 VBG Potassium 3.7 mmol/L (3.6-5.2) 03/23/19 08:00 Sodium 137.0 mmol/L (132-148) 03/23/19 08:00 Chloride 104.0 mmol/L (98-107) 03/23/19 08:00 Glucose 331 mg/dl (65-105) H 03/23/19 08:00 Lactate 0.8 mmol/L (0.7-2.1) 03/23/19 08:00 FiO2 21.0 % 03/23/19 08:00 Crit Value Called To Smiley 03/23/19 02:47 Crit Value Called By 03/23/19 02:47 Blood Gas Notified Time 310 03/23/19 02:47 Sodium 136 mmol/L (132-148) 03/24/19 07:20 Potassium 4.0 mmol/L (3.6-5.0) 03/24/19 07:20 Chloride 100 mmol/L (98-107) 03/24/19 07:20 Carbon Dioxide 27 mmol/L (21-33) 03/24/19 07:20 Anion Gap 14 (10-20) 03/24/19 07:20 BUN 8 mg/dL (7-21) 03/24/19 07:20 Creatinine 0.3 mg/dl (0.7-1.2) L 03/24/19 07:20 Est GFR ( Amer) > 60 03/24/19 07:20 Est GFR (Non-Af Amer) > 60 03/24/19 07:20 POC Glucose (mg/dL) 245 mg/dL (65-110) H 03/24/19 06:54 Random Glucose 231 mg/dL (70-110) H 03/24/19 07:20 Serum Osmolality 314 mosm/kg (272-300) H 03/23/19 02:15 Calcium 9.2 mg/dL (8.4-10.5) 03/24/19 07:20 Total Bilirubin 0.4 mg/dL (0.2-1.3) 03/23/19 02:15 AST 23 U/L (14-36) 03/23/19 02:15 ALT < 6 U/L (7-56) L 03/23/19 02:15 Alkaline Phosphatase 82 U/L (38-126) 03/23/19 02:15 Total Protein 7.9 g/dL (5.8-8.3) 03/23/19 02:15 Albumin 4.3 g/dL (3.0-4.8) 03/23/19 02:15 Globulin 3.6 gm/dL 03/23/19 02:15 Albumin/Globulin Ratio 1.2 (1.1-1.8) 03/23/19 02:15 Lipase 138 U/L (23-300) 03/23/19 02:15 Venous Blood Potassium 3.7 mmol/L (3.6-5.2) 03/23/19 08:00 Urine Color Yellow (YELLOW) 03/23/19 01:55 Urine Appearance Sl cloudy (CLEAR) 03/23/19 01:55 Urine pH 6.0 (4.7-8.0) 03/23/19 01:55 Ur Specific [place] 1.015 (1.005-1.035) 03/23/19 01:55 Urine Protein Negative mg/dL (<30 mg/dL) 03/23/19 01:55 Urine Glucose (UA) >=1000 mg/dL (NEGATIVE) 03/23/19 01:55 Urine Ketones Negative mg/dL (NEGATIVE) 03/23/19 01:55 Urine Blood Negative (NEGATIVE) 03/23/19 01:55 Urine Nitrate Negative (NEGATIVE) 03/23/19 01:55 Urine Bilirubin Negative (NEGATIVE) 03/23/19 01:55 Urine Urobilinogen 0.2 E.U./dL (<1 E.U./dL) 03/23/19 01:55 Ur Leukocyte Esterase Trace Viet/uL (NEGATIVE) H 03/23/19 01:55 Urine RBC 0 - 2 /hpf (0-2) 03/23/19 01:55 Urine WBC 5 - 10 /hpf (0-6) H 03/23/19 01:55 Ur Epithelial Cells 1 - 3 /hpf (0-5) 03/23/19 01:55 Urine Bacteria Trace /hpf (NONE) 03/23/19 01:55 Urine Other Uyeast /hpf 03/23/19 01:55 Alcohol, Quantitative < 10 mg/dL (0-10) 03/23/19 11:30 - Hospital Course Hospital Course: Gracie Brooke, PGY-1, Internal Medicine Discharge Summary for Dr. Torres 24 year old female with past medical history of uncontrolled DM2 with neuropathy, medication noncompliance, intermittent asthma presented for hyperglycemia with blood glucose found to be 430 at home. Patient reported nausea and vomiting twice prior to arrival but that had resolved by admission. Patient had a URI few days prior to admission with symptoms of runny nose and sore throat which had resolved by admission. Patient was admitted for hyperglycemia. Upon admission, patient denied any symptoms and did not complain of any symptoms throughout the admission except for lethargy yesterday Blood glucose on admission was 433. Hemoglobin A1c on 02/10 was 15.7. Patient had no anion gap, bicarbonate was more than 15 thoughout admission, and lactic acid was initially 2.1 but trended down. Patient was not in DKA. Patient was started on humalin 70/30 24 U ACB and 18 U ACD and glipizide 5 mg BID. Patient's blood glucose was as high as 480, but started to trend down subsequently. Regimen was changed to glipizide 10 mg BID, NPH 20 U BID, and low sliding scale insulin. This was increased to NPH 22 U BID as patient's glucose was in the 250s yesterday. Patient was seen yesterday morning, when patient was fatigued and tired as her glucose was 158 at the time, and patient was used to glucose being in 200s to 300s. In addition, gabapentin for neuropathy was stopped at that time due to its side effects of drowsiness. Patient had loss of appetite yesterday, but that has since improved today. Patient's glucose improved today and patient was ready for discharge. Patient was advised regarding the importance of adherence to insulin regimen and checking glucose multiple times a day. quill worker also reinforced need to continue with insulin regimen and offered help with supplies. Patient was found to be stable and ready for discharge. Patient was told to follow up with PCP, [facility], within 3-5 days. Patient was told to take all medications as prescribed. Patient was advised to monitor glucose three times a day and call Yolanda Cross to help adjust insulin. Patient was given large supply of syringes for free. Patient was told to follow healthier lifestyle including low carbohydrate diet. Patient was told to return to the emergency department if she had any new or concerning symptoms. Discharge Diagnoses Hyperglycemia Uncontrolled Diabetes Mellitus Lower extremity neuropathy Asthma - Date & Time of H&P Date of H&P: 03/23/19 Time of H&P: 03:12 Discharge Exam - Head Exam Head Exam: ATRAUMATIC, NORMAL INSPECTION, NORMOCEPHALIC - Eye Exam Eye Exam: EOMI, PERRL - ENT Exam ENT Exam: Mucous Membranes Moist - Respiratory Exam Respiratory Exam: Clear to PA & Lateral, NORMAL BREATHING PATTERN - Cardiovascular Exam Cardiovascular Exam: REGULAR RHYTHM, RRR, Rubs, +S1, +S2 - GI/Abdominal Exam GI & Abdominal Exam: Normal Bowel Sounds, Soft. absent: Distended, Firm, Guarding, Tenderness - Back Exam Back exam: FULL ROM. absent: CVA tenderness (L), CVA tenderness (R), tenderness - Neurological Exam Neurological exam: Alert, CN II-XII Intact, Normal Gait, Oriented x3 - Skin Skin Exam: Dry, Intact, Normal Color Discharge Plan - Discharge Medications Prescriptions: Insulin NPH Hum/Reg Insulin Hm [Humulin 70/30 Kwikpen] 22 unit SQ BID 14 Days #6 insuln.pen - Follow Up Plan Condition: STABLE Disposition: HOME/ ROUTINE Instructions: Hyperglycemia, Adult, Insulin Injection, Low Blood Sugar in People With Diabetes Additional Instructions: Patient to continue to follow up with [facility] in 3-5 days. It's advised that you monitor your glucose at least three times a day, and call Yolanda Cross at [phone] so she can help you adjust your insulin. It's extremely important that you follow a healthier lifestyle including low carbohydrate diet, and use your insulin as prescribed. Resume the rest of your home medications. Please return if the symptoms returns or call 911. Referrals: [facility] [Provider Group] <Jennifer Torres - Last Filed: 03/24/19 17:06> Provider - Provider Date of Admission: 03/23/19 04:05 Attending physician: Jennifer Torres MD Consults: 03/23/19 05:05 Social Work Referral Routine Comment: Patient recently evicted from home, homeless Physician Instructions: Reason For Exam: Protocol 03/23/19 05:09 Diabetic Education Referral Routine Comment: Physician Instructions: Reason For Exam: uncontrolled DM. meds non compliance 03/23/19 06:54 Diabetic Education Referral Routine Comment: Physician Instructions: Reason For Exam: protocol Hospital Course - Lab Results Lab Results: Micro Results 03/23/19 01:55 Urine,Clean Catch Urine Culture - Final >100,000 CFU/ML. MULTIPLE SPECIES. SUGGEST REPEAT SPECIMEN. Most Recent Lab Values WBC 6.9 10^3/uL (4.5-11.0) 03/24/19 07:20 RBC 4.63 10^6/uL (3.5-6.1) 03/24/19 07:20 Hgb 12.1 g/dL (12.0-16.0) 03/24/19 07:20 Hct 36.9 % (36.0-48.0) 03/24/19 07:20 MCV 79.7 fl (80.0-105.0) L 03/24/19 07:20 MCH 26.1 pg (25.0-35.0) 03/24/19 07:20 MCHC 32.8 g/dl (31.0-37.0) 03/24/19 07:20 RDW 12.3 % (11.5-14.5) 03/24/19 07:20 Plt Count 267 10^3/uL (120.0-450.0) 03/24/19 07:20 MPV 9.2 fl (7.0-11.0) 03/24/19 07:20 Neut % (Auto) 54.4 % (50.0-68.0) 03/23/19 01:39 Lymph % (Auto) 36.6 % (22.0-35.0) H 03/23/19 01:39 [place] % (Auto) 5.8 % (1.0-6.0) 03/23/19 01:39 Eos % (Auto) 2.8 % (1.5-5.0) 03/23/19 01:39 Baso % (Auto) 0.4 % (0.0-3.0) 03/23/19 01:39 Lymph # (Auto) 2.9 (1.2-3.4) 03/23/19 01:39 [place] # (Auto) 0.5 (0.1-0.6) 03/23/19 01:39 Eos # (Auto) 0.2 (0.0-0.7) 03/23/19 01:39 Baso # (Auto) 0.03 K/mm3 (0.0-2.0) 03/23/19 01:39 Absolute Neuts (auto) 4.31 (1.4-6.5) 03/23/19 01:39 pO2 83 mm/Hg (30-55) H 03/23/19 08:00 VBG pH 7.40 (7.32-7.43) 03/23/19 08:00 VBG pCO2 42.0 (40-60) 03/23/19 08:00 VBG HCO3 26.0 mmol/l (21-28) 03/23/19 08:00 VBG Total CO2 27.3 mmol.L (22-28) 03/23/19 08:00 VBG O2 Sat (Calc) 97.5 % (40-65) H 03/23/19 08:00 VBG Base Excess 1.0 mmol/L (0.0-2.0) 03/23/19 08:00 VBG Potassium 3.7 mmol/L (3.6-5.2) 03/23/19 08:00 Sodium 137.0 mmol/L (132-148) 03/23/19 08:00 Chloride 104.0 mmol/L (98-107) 03/23/19 08:00 Glucose 331 mg/dl (65-105) H 03/23/19 08:00 Lactate 0.8 mmol/L (0.7-2.1) 03/23/19 08:00 FiO2 21.0 % 03/23/19 08:00 Crit Value Called To Smiley 03/23/19 02:47 Crit Value Called By 03/23/19 02:47 Blood Gas Notified Time 310 03/23/19 02:47 Sodium 136 mmol/L (132-148) 03/24/19 07:20 Potassium 4.0 mmol/L (3.6-5.0) 03/24/19 07:20 Chloride 100 mmol/L (98-107) 03/24/19 07:20 Carbon Dioxide 27 mmol/L (21-33) 03/24/19 07:20 Anion Gap 14 (10-20) 03/24/19 07:20 BUN 8 mg/dL (7-21) 03/24/19 07:20 Creatinine 0.3 mg/dl (0.7-1.2) L 03/24/19 07:20 Est GFR ( Amer) > 60 03/24/19 07:20 Est GFR (Non-Af Amer) > 60 03/24/19 07:20 POC Glucose (mg/dL) 142 mg/dL (65-110) H 03/24/19 11:04 Random Glucose 231 mg/dL (70-110) H 03/24/19 07:20 Serum Osmolality 314 mosm/kg (272-300) H 03/23/19 02:15 Calcium 9.2 mg/dL (8.4-10.5) 03/24/19 07:20 Total Bilirubin 0.4 mg/dL (0.2-1.3) 03/23/19 02:15 AST 23 U/L (14-36) 03/23/19 02:15 ALT < 6 U/L (7-56) L 03/23/19 02:15 Alkaline Phosphatase 82 U/L (38-126) 03/23/19 02:15 Total Protein 7.9 g/dL (5.8-8.3) 03/23/19 02:15 Albumin 4.3 g/dL (3.0-4.8) 03/23/19 02:15 Globulin 3.6 gm/dL 03/23/19 02:15 Albumin/Globulin Ratio 1.2 (1.1-1.8) 03/23/19 02:15 Lipase 138 U/L (23-300) 03/23/19 02:15 Venous Blood Potassium 3.7 mmol/L (3.6-5.2) 03/23/19 08:00 Urine Color Yellow (YELLOW) 03/23/19 01:55 Urine Appearance Sl cloudy (CLEAR) 03/23/19 01:55 Urine pH 6.0 (4.7-8.0) 03/23/19 01:55 Ur Specific [place] 1.015 (1.005-1.035) 03/23/19 01:55 Urine Protein Negative mg/dL (<30 mg/dL) 03/23/19 01:55 Urine Glucose (UA) >=1000 mg/dL (NEGATIVE) 03/23/19 01:55 Urine Ketones Negative mg/dL (NEGATIVE) 03/23/19 01:55 Urine Blood Negative (NEGATIVE) 03/23/19 01:55 Urine Nitrate Negative (NEGATIVE) 03/23/19 01:55 Urine Bilirubin Negative (NEGATIVE) 03/23/19 01:55 Urine Urobilinogen 0.2 E.U./dL (<1 E.U./dL) 03/23/19 01:55 Ur Leukocyte Esterase Trace Viet/uL (NEGATIVE) H 03/23/19 01:55 Urine RBC 0 - 2 /hpf (0-2) 03/23/19 01:55 Urine WBC 5 - 10 /hpf (0-6) H 03/23/19 01:55 Ur Epithelial Cells 1 - 3 /hpf (0-5) 03/23/19 01:55 Urine Bacteria Trace /hpf (NONE) 03/23/19 01:55 Urine Other Uyeast /hpf 03/23/19 01:55 Alcohol, Quantitative < 10 mg/dL (0-10) 03/23/19 11:30 Attending/Attestation - Attestation I have personally seen and examined this patient.: Yes I have fully participated in the care of the patient.: Yes I have reviewed all pertinent clinical information, including history, physical exam and plan: Yes Notes (Text): 03/24/19 17:03 Attending note: Patient seen and examined with resident. Denies any fever and chills. denies any chest pain, shortness of breath. Denies any abdominal pain, nausea and vomiting. tolerating diet. ambulating fine. Patient is a 24 year old female with past medical history of uncontrolled DM2 with neuropathy, medication noncompliance, intermittent asthma presented for hyperglycemia with blood glucose found to be 430 at home. Patient reported nausea and vomiting twice prior to arrival but that had resolved by admission. 1. uncontrolled DM: started on metformin, glipizide and Insulin. Dietary and Diabetic nurse education given. Need for strict glucose control advised. 2. Non compliance: dialysis social worker evaluation greatly appreciated in assiting w ith insurance issues. discharge home today. Follow up with [facility] clinic.
[2019-03-25] MEDS ORDERED: Pantoprazole 40 mg EC Tab PO SCH (06:00)
== END 2019-03-24 12:30 | disposition home or self-care (01) ==
LOC: ED 00:49 → ERH 04:05 → 5RNO 05:45
PROVIDERS: ADMIT Internal Medicine; ATTEND Internal Medicine
DX: E11.65 Type 2 diabetes mellitus with hyperglycemia (principal); N39.0 Urinary tract infection, site not specified; E11.40 Type 2 diabetes mellitus with diabetic neuropathy, unspecified; J45.20 Mild intermittent asthma, uncomplicated; F12.90 Cannabis use, unspecified, uncomplicated; I10 Essential (primary) hypertension; Z79.4 Long term (current) use of insulin; Z91.14 Patient's other noncompliance with medication regimen; Z83.3 Family history of diabetes mellitus; Z82.49 Family history of ischemic heart disease and other diseases of the circulatory system
CPT/HCPCS: 36415; 71045; 80048; 80053; 81001; 81025; 82803; 82948; 83690; 83930; 85025; 85027; 87086; 96374; 97161; 99284; G0378; G0480; G8978; G8979; G8980; J7030